=== PATIENT | male | born 1935 | race Caucasian/White ===

== ENCOUNTER 2017-06-02 10:03 | Emergency (ER) | payer MEDICARE, BC ==
--- NOTE | 2017-06-02 10:52 | EDM.PDOC ---
ED HPI GENERAL MEDICAL PROBLEM - General Chief Complaint: General Stated Complaint: BLOOD PRESSURE UP Time Seen by Provider: 06/02/17 10:27 Source of Information: Reports: Patient, Family, Old Records History Limitations: Reports: No Limitations - History of Present Illness INITIAL COMMENTS - FREE TEXT/NARRATIVE: 81-year-old gentleman presents emergency department today via EMS services for dizziness and nausea, recently had [facility] to [place] on 08 May for subjective weakness on one side he does have a history of a CVA several years ago as well as valve replacement is currently on Coumadin, was evaluated in the emergency department at [facility], CT scan showed no acute process diffuse atrophy and his Coumadin was 2.5 per notes patient felt he had no objective weakness on one side. For this particular event he felt dizzy this morning was nauseated generally weak in both legs almost to the point of being presyncopal, did not fall to the ground was able to guide himself to a chair. He is not had any fevers shortness of breath or chest pain, the dizziness now has resolved as well as the nausea denies Pain Score (Numeric/FACES): 0 - Related Data Allergies Allergy/AdvReac Type Severity Reaction Status Date / Time No Known Allergies Allergy Verified 06/02/17 10:09 Home Meds: Home Meds Aspirin 81 mg PO DAILY 06/02/17 [History] Atenolol [Atenolol] 25 mg PO DAILY 06/02/17 [History] Cholecalciferol (Vitamin D3) [Vitamin D3] 1,000 unit PO DAILY 06/02/17 [History] Losartan [Cozaar] 25 mg PO DAILY 06/02/17 [History] Omeprazole 40 mg PO DAILY 06/02/17 [History] Warfarin [Coumadin] 6 mg PO DAILY 06/02/17 [History] atorvaSTATin [Lipitor] 80 mg PO BEDTIME 06/02/17 [History] Past Medical History Cardiovascular History: Reports: Hypertension Neurological History: Reports: CVA, TIA, Vertigo - Past Surgical History Cardiovascular Surgical History: Reports: Valve Replacement Social & Family History - Tobacco Use Smoking Status *Q: Never Smoker Second Hand Smoke Exposure: No - Recreational Drug Use Recreational Drug Use: No ED ROS GENERAL - Review of Systems Review Of Systems: See Below Constitutional: Reports: No Symptoms HEENT: Reports: Vertigo Respiratory: Reports: No Symptoms Cardiovascular: Reports: No Symptoms GI/Abdominal: Reports: No Symptoms : Reports: No Symptoms Musculoskeletal: Reports: No Symptoms Skin: Reports: No Symptoms Neurological: Reports: Dizziness ED EXAM, GENERAL - Physical Exam Exam: See Below Free Text/Narrative:: General: Elderly male, not in any distress, alert and oriented x3 HEENT: head is atraumatic normocephalic, eyes pupils equal round reactive to light, sclera clear no conjunctivitis appreciated. Ears tympanic membranes clear and pittman landmarks and light reflex are present bilaterally canals are clear. Nose no septal deviation, nares are clear, no blood present. Mouth mucosa is moist and pink no erythema or exudate noted in soft palate, tongue is midline uvula is midline, dentition is intact. Neck: Supple no thyromegaly no tracheal deviation. Nodes: Cervical nodes subclavicular nodes nontender no palpable lymphadenopathy noted. Lungs: clear to auscultation bilaterally with symmetrical respirations, no adventitious noise appreciated. CV: Regular rate and rhythm S1 and S2 appreciated 2/6 systolic ejection murmur consistent with mechanical click best appreciated left sternal border Abdomen: Soft, nontender, no palpable masses or organomegaly appreciated, no distention no guarding bowel sounds are present, . Neuro: Cranial nerves II through XII grossly intact wong 5 x 5 in upper and lower extremities no dysdiadochokinesis noted Skin: Warm and dry, intact Extremities: No lower extremity edema appreciated, Gregorio-pike is negative EKG INTERPRETATION EKG Interpretation Comments: EKG performed in the ambulance demonstrates a sinus rhythm no ST elevations or depressions Course - Vital Signs Last Recorded V/S: Last Vital Signs Temp 97.3 F 06/02/17 10:12 Pulse 47 L 06/02/17 11:31 Resp 15 06/02/17 11:31 BP 177/79 H 06/02/17 11:31 Pulse Ox 97 06/02/17 11:31 - Orders/Labs/Meds Labs: Laboratory Tests 06/02/17 06/02/17 06/02/17 Range/Units 10:57 11:03 11:03 WBC 8.3 (4.5-11.0) K/uL RBC 4.57 (4.30-5.90) M/uL Hgb 14.4 (12.0-15.0) g/dL Hct 42.0 (40.0-54.0) % MCV 92 (80-98) fL MCH 32 H (27-31) pg MCHC 34 (32-36) % Plt Count 186 (150-400) K/uL Neut % (Auto) 85 H (36-66) % Lymph % (Auto) 8 L (24-44) % [facility] % (Auto) 7 H (2-6) % Eos % (Auto) 0 L (2-4) % Baso % (Auto) 0 (0-1) % Sodium 138 L (140-148) mmol/L Potassium 4.6 (3.6-5.2) mmol/L Chloride 104 (100-108) mmol/L Carbon Dioxide 29 (21-32) mmol/L Anion Gap 9.6 (5.0-14.0) mmol/L BUN 14 (7-18) mg/dL Creatinine 1.1 (0.8-1.3) mg/dL Est Cr Clr Drug Dosing 54.98 mL/min Estimated GFR (MDRD) > 60 (>60) Glucose 110 H (74-106) mg/dL Calcium 8.4 L (8.5-10.1) mg/dL Urine Color Yellow Urine Appearance Clear Urine pH 8.0 (4.5-8.0) Ur Specific [place] 1.015 (1.008-1.030) Urine Protein Negative (NEGATIVE) mg/dL Urine Glucose (UA) Normal (NEGATIVE) mg/dL Urine Ketones Negative (NEGATIVE) mg/dL Urine Occult Blood Negative (NEGATIVE) Urine Nitrite Negative (NEGAITVE) Urine Bilirubin Negative (NEGATIVE) Urine Urobilinogen Normal (NORMAL) mg/dL Ur Leukocyte Esterase Negative (NEGATIVE) Urine RBC 0-5 (0-5) Urine WBC 0-5 (0-5) Ur Epithelial Cells Rare Amorphous Sediment Not seen Urine Bacteria Rare Urine Mucus Not seen Departure - Departure Time of Disposition: 12:21 Disposition: Home, Self-Care 01 Condition: Fair Clinical Impression: Dizziness - Discharge Information Forms: ED Department Discharge Additional Instructions: Please followup with your primary care provider in 3-5 days if not better, please call return to the emergency department with worsening of symptoms. - Assessment/Plan Plan: Assessment Acuity = acute Site and laterality = dizziness complicated patient with history of cervical vascular accident on Coumadin Etiology = unclear etiology Manifestations = none Location of injury = Home Lab values = CBC, CMP, unremarkable, EKG EMS unremarkable INR pending Plan Physical follow-up with his primary care physician X5 to 7 days for reevaluation and further evaluation of dizziness which may include image studies such as an MRI, consultation physical therapy consultation with neurology Patient was in agreement with the plan all questions were answered, they were instructed to return to the emergency department or call for worsening symptoms. This note was dictated using [employer] voice recognition software please call with any questions.
[2017-06-02 11:32] VITALS: BP 177/79
== END 2017-06-02 12:41 | disposition home or self-care (01) ==
LOC: JP.ED 10:03
DX: R42 Dizziness and giddiness (principal); I10 Essential (primary) hypertension; Z95.4 Presence of other heart-valve replacement; Z79.01 Long term (current) use of anticoagulants; Z79.899 Other long term (current) drug therapy; Z79.82 Long term (current) use of aspirin; Z86.73 Personal history of transient ischemic attack (TIA), and cerebral infarction without residual deficits
CPT/HCPCS: 36415; 80048; 81001; 85025; 85610; 99283; 99284-25

== ENCOUNTER 2017-06-04 09:37 | Inpatient (IN) | payer MEDICARE, BC ==
--- NOTE | 2017-06-04 10:38 | EDM.PDOC ---
ED HPI GENERAL MEDICAL PROBLEM - General Chief Complaint: Neurological Problem Stated Complaint: DIZZINESS/VOMITING/HIGH BP Time Seen by Provider: 06/04/17 10:38 Source of Information: Reports: Patient History Limitations: Reports: No Limitations - History of Present Illness INITIAL COMMENTS - FREE TEXT/NARRATIVE: pt arrived very off balance and a concern about his bp going up and down.he was seen Saturday and he was going to be set up for a MRI. Onset: Gradual Duration: Day(s):, Other (pt has had increased difficulty ambulating . He is very off balance. ) Location: Reports: Head Associated Symptoms: Reports: Weakness, Other (off balance. ) - Related Data Allergies Allergy/AdvReac Type Severity Reaction Status Date / Time No Known Allergies Allergy Verified 06/04/17 09:54 Home Meds: Home Meds Aspirin 81 mg PO DAILY 06/02/17 [History] Atenolol [Atenolol] 25 mg PO DAILY 06/02/17 [History] Cholecalciferol (Vitamin D3) [Vitamin D3] 1,000 unit PO DAILY 06/02/17 [History] Losartan [Cozaar] 25 mg PO DAILY 06/02/17 [History] Omeprazole 40 mg PO DAILY 06/02/17 [History] Warfarin [Coumadin] 6 mg PO DAILY 06/02/17 [History] atorvaSTATin [Lipitor] 80 mg PO BEDTIME 06/02/17 [History] Past Medical History Cardiovascular History: Reports: Hypertension Neurological History: Reports: CVA, TIA, Vertigo - Past Surgical History Cardiovascular Surgical History: Reports: Valve Replacement Social & Family History - Tobacco Use Smoking Status *Q: Never Smoker Second Hand Smoke Exposure: No - Caffeine Use Caffeine Use: Reports: None - Recreational Drug Use Recreational Drug Use: No ED ROS GENERAL - Review of Systems Review Of Systems: See Below Constitutional: Reports: No Symptoms HEENT: Reports: No Symptoms Respiratory: Reports: No Symptoms Cardiovascular: Reports: No Symptoms Endocrine: Reports: No Symptoms GI/Abdominal: Reports: No Symptoms : Reports: No Symptoms Musculoskeletal: Reports: No Symptoms Skin: Reports: No Symptoms Neurological: Reports: Dizziness, Pre-Existing Deficit, Other (pt is very off balance. ) Psychiatric: Reports: Anxiety ED EXAM, NEURO - Physical Exam Exam: See Below Text/Narrative:: pt is having a very labile bp. He had a high pressure at home and on arrival had a bp in the 109 range. Shortly after that he spiked a bp to 202 systolic. Exam Limited By: No Limitations General Appearance: Alert, Anxious Ears: Normal TMs Nose: Normal Inspection Throat/Mouth: Normal Inspection Head Exam: Atraumatic Neck: Normal Inspection, Other ( no evidence of carotid bruits) Respiratory/Chest: No Respiratory Distress Cardiovascular: Regular Rate, Rhythm GI/Abdominal: Soft, Non-Tender, Other (pt had a aortic valve replacement. ) (Male) Exam: Deferred Rectal (Males) Exam: Deferred Neurological: Alert, Oriented x 3, Other (pt can bearly stand and has increased weakness in his legs. ) Back Exam: Normal Inspection Extremities: Normal Inspection, Other (pt has good strength in his upper extremities/ ) Psychiatric: Normal Affect Course - Vital Signs Last Recorded V/S: Last Vital Signs Temp 36.2 C 06/04/17 13:42 Pulse 50 L 06/04/17 13:42 Resp 14 06/04/17 13:42 BP 202/84 H 06/04/17 13:42 Pulse Ox 97 06/04/17 13:42 Orthostatic Blood Pressure [ 176/75 Standing] Orthostatic Blood Pressure [ 174/78 Sitting] Orthostatic Blood Pressure [ 180/77 Supine] - Orders/Labs/Meds Orders: Active Orders 24 hr Category Date Time Status EKG Documentation Completion [RC] ASDIRECTED Care 06/04/17 10:34 Active Sodium Chloride 0.9% [Normal Saline] 1,000 ml Med 06/04/17 10:45 Active IV ASDIRECTED EKG 12 Lead [EK] Routine Ther 06/04/17 10:34 Ordered Medication Orders Sodium Chloride (Normal Saline) 1,000 mls @ 300 mls/hr IV ASDIRECTED PAL Last Admin: 06/04/17 10:50 Dose: 300 mls/hr Labs: Laboratory Tests 06/04/17 06/04/17 06/04/17 Range/Units 10:15 10:15 11:05 WBC 5.8 (4.5-11.0) K/uL RBC 4.54 (4.30-5.90) M/uL Hgb 14.2 (12.0-15.0) g/dL Hct 41.3 (40.0-54.0) % MCV 91 (80-98) fL MCH 31 (27-31) pg MCHC 34 (32-36) % Plt Count 188 (150-400) K/uL Neut % (Auto) 76 H (36-66) % Lymph % (Auto) 13 L (24-44) % [place] % (Auto) 10 H (2-6) % Eos % (Auto) 1 L (2-4) % Baso % (Auto) 0 (0-1) % PT (9.5-12.0) sec INR (0.80-1.20) Sodium 137 L (140-148) mmol/L Potassium 4.1 (3.6-5.2) mmol/L Chloride 102 (100-108) mmol/L Carbon Dioxide 29 (21-32) mmol/L Anion Gap 10.1 (5.0-14.0) mmol/L BUN 15 (7-18) mg/dL Creatinine 1.0 (0.8-1.3) mg/dL Est Cr Clr Drug Dosing 60.48 mL/min Estimated GFR (MDRD) > 60 (>60) Glucose 101 (74-106) mg/dL Calcium 8.4 L (8.5-10.1) mg/dL Total Bilirubin 0.9 (0.2-1.0) mg/dL AST 26 (15-37) U/L ALT 32 (12-78) U/L Alkaline Phosphatase 99 (46-116) U/L Total Protein 7.3 (6.4-8.2) g/dL Albumin 3.5 (3.4-5.0) g/dL Globulin 3.8 H (2.3-3.5) g/dL Albumin/Globulin Ratio 0.9 L (1.2-2.2) Urine Color Yellow Urine Appearance Clear Urine pH 9.0 H (4.5-8.0) Ur Specific [place] 1.015 (1.008-1.030) Urine Protein Negative (NEGATIVE) mg/dL Urine Glucose (UA) Normal (NEGATIVE) mg/dL Urine Ketones Negative (NEGATIVE) mg/dL Urine Occult Blood Negative (NEGATIVE) Urine Nitrite Negative (NEGAITVE) Urine Bilirubin Negative (NEGATIVE) Urine Urobilinogen Normal (NORMAL) mg/dL Ur Leukocyte Esterase Negative (NEGATIVE) Urine RBC Not seen (0-5) Urine WBC Not seen (0-5) Ur Epithelial Cells Few Amorphous Sediment Not seen Urine Bacteria Not seen Urine Mucus Not seen 06/04/17 Range/Units 11:23 WBC (4.5-11.0) K/uL RBC (4.30-5.90) M/uL Hgb (12.0-15.0) g/dL Hct (40.0-54.0) % MCV (80-98) fL MCH (27-31) pg MCHC (32-36) % Plt Count (150-400) K/uL Neut % (Auto) (36-66) % Lymph % (Auto) (24-44) % [place] % (Auto) (2-6) % Eos % (Auto) (2-4) % Baso % (Auto) (0-1) % PT 21.8 H (9.5-12.0) sec INR 1.98 H (0.80-1.20) Sodium (140-148) mmol/L Potassium (3.6-5.2) mmol/L Chloride (100-108) mmol/L Carbon Dioxide (21-32) mmol/L Anion Gap (5.0-14.0) mmol/L BUN (7-18) mg/dL Creatinine (0.8-1.3) mg/dL Est Cr Clr Drug Dosing mL/min Estimated GFR (MDRD) (>60) Glucose (74-106) mg/dL Calcium (8.5-10.1) mg/dL Total Bilirubin (0.2-1.0) mg/dL AST (15-37) U/L ALT (12-78) U/L Alkaline Phosphatase (46-116) U/L Total Protein (6.4-8.2) g/dL Albumin (3.4-5.0) g/dL Globulin (2.3-3.5) g/dL Albumin/Globulin Ratio (1.2-2.2) Urine Color Urine Appearance Urine pH (4.5-8.0) Ur Specific [place] (1.008-1.030) Urine Protein (NEGATIVE) mg/dL Urine Glucose (UA) (NEGATIVE) mg/dL Urine Ketones (NEGATIVE) mg/dL Urine Occult Blood (NEGATIVE) Urine Nitrite (NEGAITVE) Urine Bilirubin (NEGATIVE) Urine Urobilinogen (NORMAL) mg/dL Ur Leukocyte Esterase (NEGATIVE) Urine RBC (0-5) Urine WBC (0-5) Ur Epithelial Cells Amorphous Sediment Urine Bacteria Urine Mucus Meds: Medications Generic Name Dose Route Start Last Admin Trade Name Meredith PRN Reason Stop Dose Admin Sodium Chloride 1,000 mls @ 300 mls/hr 06/04/17 10:45 06/04/17 10:50 Normal Saline IV 300 mls/hr ASDIRECTED PAL Administration - Re-Assessments/Exams Free Text/Narrative Re-Assessment/Exam: 06/04/17 14:04 pt had an MRI which did not reveal any acute findings. His bp continued to be very labile. Departure - Departure Time of Disposition: 14:05 Disposition: Admitted As Inpatient 67 Condition: Fair Clinical Impression: Blood pressure instability, History of stroke - Discharge Information Forms: ED Department Discharge Care Plan Goals: admit to Dr villatoro. - My Orders Last 24 Hours: My Active Orders 06/04/17 10:34 EKG Documentation Completion [RC] ASDIRECTED EKG 12 Lead [EK] Routine 06/04/17 10:45 Sodium Chloride 0.9% [Normal Saline] 1,000 ml IV ASDIRECTED - Assessment/Plan Last 24 Hours: My Active Orders 06/04/17 10:34 EKG Documentation Completion [RC] ASDIRECTED EKG 12 Lead [EK] Routine 06/04/17 10:45 Sodium Chloride 0.9% [Normal Saline] 1,000 ml IV ASDIRECTED
[2017-06-04] MEDS ORDERED: Sodium Chloride 0.9% 1,000 ML IV SCH (10:45)
--- NOTE | 2017-06-04 13:10 | MR ---
Brain wo Cont INDICATION: off balance previous history of a cva. Technique: Multiplanar MR images of the brain obtained without IV contrast. COMPARISON: None FINDINGS: No acute ischemic change. Old right occipital lobe infarct. Small old right cerebellar inf arct. Extensive chronic small vessel ischemic disease. No diffusion restriction to suggest acute isc hemic change. Innumerable tiny low signal foci on gradient echo sequence throughout both cerebral an d cerebellar hemispheres. Findings nonspecific and may be due to old trauma. No signs of acute hemor rhage. Ventricles normal size. IMPRESSION: 1. Nothing acute. 2. Old right occipital lobe infarct, small old right cerebellar infarct, and extensive chronic small vessel ischemic disease.
--- NOTE | 2017-06-04 14:52 | PCM.HP ---
H&P History of Present Illness - General Date of Service: 06/04/17 Admit Problem/Dx: Admission Diagnosis/Problem Admission Diagnosis/Problem Hypertension Source of Information: Patient, Family, Provider History Limitations: Reports: No Limitations - History of Present Illness Initial Comments - Free Text/Narative: Alex presents to the emergency room today with severe dizziness and unsteadiness. He has had similar difficulties over the past month or so with some days being worse than others. He has had multiple falls because of his gait unsteadiness. He notices orthostatic symptoms including dizziness/ lightheadedness after getting up out of bed or out of a chair. He needs to use objects or a walker to steady himself. He does not describe any sort of vertigo symptoms. He has not had any fevers. He does not report headache, blurry vision , chest pain or shortness of breath. No change in bowel or bladder habits. No new medications. Symptoms seem to be slowly progressing. His has been checking his blood pressure for the past few days and has noted significant elevations but also some that are normal or low normal. His blood pressure range has been anywhere from 100-200 with regard to his systolic pressures. His pressures were elevated today when he had his dizziness so he came in for evaluation. Workup in the emergency room has been relatively reassuring other than his systolic blood pressures near 200. An MRI of his brain was completed and showed chronic small vessel disease and an old infarct but no acute findings. His blood pressure has ranged anywhere from 100-200. Because of his significant gait instability he is not thought to be safe for outpatient management. - Related Data Allergies/Adverse Reactions: Allergies Allergy/AdvReac Type Severity Reaction Status Date / Time No Known Allergies Allergy Verified 06/04/17 09:54 Home Medications: Home Meds Aspirin 81 mg PO DAILY 06/02/17 [History] Atenolol [Atenolol] 25 mg PO DAILY 06/02/17 [History] Cholecalciferol (Vitamin D3) [Vitamin D3] 1,000 unit PO DAILY 06/02/17 [History] Losartan [Cozaar] 25 mg PO DAILY 06/02/17 [History] Omeprazole 40 mg PO BID 06/02/17 [History] Warfarin [Coumadin] 6 mg PO DAILY 06/02/17 [History] atorvaSTATin [Lipitor] 80 mg PO BEDTIME 06/02/17 [History] Lutein 40 mg PO DAILY 06/04/17 [History] Past Medical History Cardiovascular History: Reports: Hypertension Neurological History: Reports: CVA, TIA, Vertigo - Past Surgical History Cardiovascular Surgical History: Reports: Valve Replacement Social & Family History - Family History Cardiac: Reports: CAD - Tobacco Use Smoking Status *Q: Never Smoker Second Hand Smoke Exposure: No - Caffeine Use Caffeine Use: Reports: None - Alcohol Use Alcohol Use History: No - Recreational Drug Use Recreational Drug Use: No H&P Review of Systems - Review of Systems: Review Of Systems: See Below Free Text/Narrative: A complete 12 point review of systems was obtained. Pertinent positives and negatives are noted in the history of present illness. All other systems were reviewed and were negative except as noted. Exam - Exam Exam: See Below - Vital Signs Vital Signs: Last Vital Signs Temp 36.2 C 06/04/17 13:42 Pulse 50 L 06/04/17 13:42 Resp 14 06/04/17 13:42 BP 202/84 H 06/04/17 13:42 Pulse Ox 97 06/04/17 13:42 Orthostatic Blood Pressure [ 176/75 Standing] Orthostatic Blood Pressure [ 174/78 Sitting] Orthostatic Blood Pressure [ 180/77 Supine] Weight: 72.575 kg - Exam Quality Assessment: No: Supplemental Oxygen General: Alert, Oriented, Cooperative. No: Mild Distress HEENT: Conjunctiva Clear, Mucosa Moist & [place], Pupils Equal. No: Scleral Icterus Neck: Supple, Trachea Midline. No: Lymphadenopathy, Thyromegaly Lungs: Clear to Auscultation, Normal Respiratory Effort Cardiovascular: Regular Rate, Regular Rhythm, Systolic Murmur (Soft systolic ejection murmur heard throughout), Other ([place] heart valve sounds) GI/Abdominal Exam: Normal Bowel Sounds, Soft, Non-Tender, No Distention Back Exam: Normal Inspection, Full Range of Motion Extremities: Normal Inspection. No: Pedal Edema, Increased Warmth Peripheral Pulses: 1+: Dorsalis Pedis (L), Dorsalis Pedis (R) Skin: Warm, Dry, Intact Neuro Extensive - Mental Status: Alert, Oriented x3, Nl Response to Commands Neuro Extensive - Motor, Sensory, Reflexes: CN II-XII Intact. No: Dysarthria, Abnormal Motor, Tremor DTR: 1+: Bicep (L), Bicep (R), Patella (L), Patella (R) Psychiatric: Alert, Normal Affect - Patient Data Lab Results Last 24 hrs: Laboratory Results - last 24 hr 06/04/17 06/04/17 06/04/17 Range/Units 10:15 10:15 11:05 WBC 5.8 (4.5-11.0) K/uL RBC 4.54 (4.30-5.90) M/uL Hgb 14.2 (12.0-15.0) g/dL Hct 41.3 (40.0-54.0) % MCV 91 (80-98) fL MCH 31 (27-31) pg MCHC 34 (32-36) % Plt Count 188 (150-400) K/uL Neut % (Auto) 76 H (36-66) % Lymph % (Auto) 13 L (24-44) % [place] % (Auto) 10 H (2-6) % Eos % (Auto) 1 L (2-4) % Baso % (Auto) 0 (0-1) % PT (9.5-12.0) sec INR (0.80-1.20) Sodium 137 L (140-148) mmol/L Potassium 4.1 (3.6-5.2) mmol/L Chloride 102 (100-108) mmol/L Carbon Dioxide 29 (21-32) mmol/L Anion Gap 10.1 (5.0-14.0) mmol/L BUN 15 (7-18) mg/dL Creatinine 1.0 (0.8-1.3) mg/dL Est Cr Clr Drug Dosing 60.48 mL/min Estimated GFR (MDRD) > 60 (>60) Glucose 101 (74-106) mg/dL Calcium 8.4 L (8.5-10.1) mg/dL Total Bilirubin 0.9 (0.2-1.0) mg/dL AST 26 (15-37) U/L ALT 32 (12-78) U/L Alkaline Phosphatase 99 (46-116) U/L Total Protein 7.3 (6.4-8.2) g/dL Albumin 3.5 (3.4-5.0) g/dL Globulin 3.8 H (2.3-3.5) g/dL Albumin/Globulin Ratio 0.9 L (1.2-2.2) Urine Color Yellow Urine Appearance Clear Urine pH 9.0 H (4.5-8.0) Ur Specific [place] 1.015 (1.008-1.030) Urine Protein Negative (NEGATIVE) mg/dL Urine Glucose (UA) Normal (NEGATIVE) mg/dL Urine Ketones Negative (NEGATIVE) mg/dL Urine Occult Blood Negative (NEGATIVE) Urine Nitrite Negative (NEGAITVE) Urine Bilirubin Negative (NEGATIVE) Urine Urobilinogen Normal (NORMAL) mg/dL Ur Leukocyte Esterase Negative (NEGATIVE) Urine RBC Not seen (0-5) Urine WBC Not seen (0-5) Ur Epithelial Cells Few Amorphous Sediment Not seen Urine Bacteria Not seen Urine Mucus Not seen 06/04/17 Range/Units 11:23 WBC (4.5-11.0) K/uL RBC (4.30-5.90) M/uL Hgb (12.0-15.0) g/dL Hct (40.0-54.0) % MCV (80-98) fL MCH (27-31) pg MCHC (32-36) % Plt Count (150-400) K/uL Neut % (Auto) (36-66) % Lymph % (Auto) (24-44) % [place] % (Auto) (2-6) % Eos % (Auto) (2-4) % Baso % (Auto) (0-1) % PT 21.8 H (9.5-12.0) sec INR 1.98 H (0.80-1.20) Sodium (140-148) mmol/L Potassium (3.6-5.2) mmol/L Chloride (100-108) mmol/L Carbon Dioxide (21-32) mmol/L Anion Gap (5.0-14.0) mmol/L BUN (7-18) mg/dL Creatinine (0.8-1.3) mg/dL Est Cr Clr Drug Dosing mL/min Estimated GFR (MDRD) (>60) Glucose (74-106) mg/dL Calcium (8.5-10.1) mg/dL Total Bilirubin (0.2-1.0) mg/dL AST (15-37) U/L ALT (12-78) U/L Alkaline Phosphatase (46-116) U/L Total Protein (6.4-8.2) g/dL Albumin (3.4-5.0) g/dL Globulin (2.3-3.5) g/dL Albumin/Globulin Ratio (1.2-2.2) Urine Color Urine Appearance Urine pH (4.5-8.0) Ur Specific [place] (1.008-1.030) Urine Protein (NEGATIVE) mg/dL Urine Glucose (UA) (NEGATIVE) mg/dL Urine Ketones (NEGATIVE) mg/dL Urine Occult Blood (NEGATIVE) Urine Nitrite (NEGAITVE) Urine Bilirubin (NEGATIVE) Urine Urobilinogen (NORMAL) mg/dL Ur Leukocyte Esterase (NEGATIVE) Urine RBC (0-5) Urine WBC (0-5) Ur Epithelial Cells Amorphous Sediment Urine Bacteria Urine Mucus Result Diagrams: 06/04/17 10:15 06/04/17 10:15 Imaging Impressions Last 24 hrs: MRI of the brain - images personally reviewed - there is evidence of a 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 Chronic small vessel ischemic disease noted. *Q Meaningful Use (ADM) - VTE *Q VTE Criteria *Q: - VTE Risk Assess *Q Each Risk Factor Represents 1 Point: None Total Score 1 Point Risk Factors: 0 Each Risk Factor Represents 2 Points: None Total Score 2 Point Risk Factors: 0 Each Risk Factor Represents 3 Points: Age 75 Years or Greater Total Score 3 Point Risk Factors: 3 Each Risk Factor Represents 5 Points: None Total Score 5 Point Risk Factors: 0 Venous Thromboembolism Risk Factor Score *Q: 3 - Stroke *Q Stroke Criteria *Q: - AMI *Q AMI Criteria *Q: - Problem List (1) Accelerated hypertension SNOMED Code(s): 82773244 ICD Code: I10 - ESSENTIAL (PRIMARY) HYPERTENSION Status: Acute Current Visit: Yes (2) Dizziness SNOMED Code(s): 060219824, 917793707 ICD Code: R42 - DIZZINESS AND GIDDINESS Status: Acute Current Visit: No Problem List Initiated/Reviewed/Updated: Yes Orders Last 24hrs: Active Orders 24 hr Category Date Time Status Patient Status Manage Transfer [TRANSFER] Routine ADT 06/04/17 14:42 Ordered EKG Documentation Completion [RC] ASDIRECTED Care 06/04/17 10:34 Active Sodium Chloride 0.9% [Normal Saline] 1,000 ml Med 06/04/17 10:45 Active IV ASDIRECTED Resuscitation Status Routine Resus Stat 06/04/17 14:43 Ordered EKG 12 Lead [EK] Routine Ther 06/04/17 10:34 Ordered Medication Orders Sodium Chloride (Normal Saline) 1,000 mls @ 300 mls/hr IV ASDIRECTED PAL Last Admin: 06/04/17 10:50 Dose: 300 mls/hr Assessment/Plan Comment:: Assessment and Plan - Accelerated hypertension - blood pressure has been labile with more recent blood pressures significantly elevated. This may be simply poorly controlled essential hypertension though I am concerned that he may have an underlying vascular issues such as cerebral stenosis or possibly but less likely a cardiac issue. MRI did not show acute issues. Examination is relatively benign at this time. Labs are reassuring. - continue losartan -MRA of his brain in the morning to rule out obstructing lesion -Echocardiogram -Hold atenolol as below -Repeat labs in the morning Dizziness - neurological exam is unremarkable. MRI shows old findings but no acute issues. Differential would include occult cerebral occlusion versus occult cardiac issue versus potentially medication side effect to atenolol. -Workup as above -Discontinue atenolol Maintenance issues - - DVT prophylaxis - mechanical - GI prophylaxis - PPI - Nutrition - regular diet - Powell catheter - not indicated CODE STATUS - DNR/DNI Admission justification - This patient will be admitted for inpatient services and is medically appropriate meeting medical necessity for inpatient admission as outlined in my documentation. I reasonably expect the patient will require inpatient services that span a period time over 2 midnights. I reasonably expect this patient to be discharged or transferred within 96 hours [facility] Disposition - anticipate discharged home after the hospital stay Primary care physician - Dr Amos Aguirre M.D.
[2017-06-04] MEDS ORDERED: Acetaminophen 325 MG Tab PO PRN (15:42)
[2017-06-04] MEDS ORDERED: Ondansetron 4 MG Tab.DIS PO PRN (15:42)
[2017-06-04] MEDS ORDERED: Non-Formulary Medication 1 Each (Atorvastatin [Lipitor] 80 MG) PO SCH (21:00)
[2017-06-04] MEDS: atorvaSTATin 20 MG Tab PO SCH (22:24)
[2017-06-05] MEDS: Pantoprazole 40 MG Tab.CR PO SCH (08:55)
[2017-06-05] MEDS ORDERED: Non-Formulary Medication 1 Each (Losartan [Cozaar] 25 MG) PO SCH (09:00)
[2017-06-05] MEDS: Aspirin 81 MG Tab.Chew PO SCH (09:20)
[2017-06-05] MEDS: Losartan 50 MG Tab PO SCH (09:20)
--- NOTE | 2017-06-05 11:26 | MR ---
Ang Head wo Cont INDICATION: TIA TECHNIQUE: MRA brain performed. COMPARISON: None FINDINGS: Multiple stenoses in the right posterior cerebral artery, which correlates with old pool servicer ior circulation infarct. Cerebellar arteries are patent. Remainder of the study shows no significant atheromatous change or stenosis. No major vessel occlusion. Neither posterior communicating artery patent, normal variant. No aneurysm seen. No vascular malformation. IMPRESSION: Multiple stenoses in the right posterior cerebral artery correlating with old right post erior circulation infarct. Otherwise no major vessel occlusion or stenosis.
--- NOTE | 2017-06-05 12:17 | PCM.PN ---
- General Info Date of Service: 06/05/17 Functional Status: Reports: Pain Controlled, Tolerating Diet, Ambulating - Review of Systems Neurological: Reports: Difficulty Walking Systems Review Comment:: No acute events overnight. Still has some dizziness and unsteadiness with his walking. No complaints of headache, shortness of breath or chest pain. Blood pressures have been stable overnight with some hydration. No significant elevations at this time. MRA did not show acute blockages but did reveal some old stenosis in the area of his previous infarct. Informal echocardiogram interpretation reveals good left ventricular function, mild perivalvular regurgitation and no evidence for pericardial effusion. - Patient Data Vitals - Most Recent: Last Vital Signs Temp 36.4 C 06/05/17 10:53 Pulse 54 L 06/05/17 10:53 Resp 16 06/05/17 10:53 BP 158/75 H 06/05/17 10:53 Pulse Ox 98 06/05/17 10:53 Weight - Most Recent: 72.575 kg I&O - Last 24 Hours: Intake & Output 06/04/17 06/05/17 06/05/17 22:59 06:59 14:59 Intake Total 300 240 Balance 300 240 Lab Results Last 24 Hours: Laboratory Results - last 24 hr 06/05/17 06/05/17 06/05/17 Range/Units 05:50 05:50 05:50 WBC 6.7 (4.5-11.0) K/uL RBC 4.44 (4.30-5.90) M/uL Hgb 13.7 (12.0-15.0) g/dL Hct 40.4 (40.0-54.0) % MCV 91 (80-98) fL MCH 31 (27-31) pg MCHC 34 (32-36) % Plt Count 182 (150-400) K/uL PT 23.2 H (9.5-12.0) sec INR 2.10 H (0.80-1.20) Sodium 137 L (140-148) mmol/L Potassium 4.2 (3.6-5.2) mmol/L Chloride 104 (100-108) mmol/L Carbon Dioxide 28 (21-32) mmol/L Anion Gap 9.2 (5.0-14.0) mmol/L BUN 16 (7-18) mg/dL Creatinine 1.0 (0.8-1.3) mg/dL Est Cr Clr Drug Dosing 60.48 mL/min Estimated GFR (MDRD) > 60 (>60) Glucose 95 (74-106) mg/dL Calcium 8.3 L (8.5-10.1) mg/dL Magnesium 1.9 (1.8-2.4) mg/dL Med Orders - Current: Current Medications Acetaminophen (Tylenol) 650 mg PO Q4H PRN PRN Reason: Pain (Mild 1-3)/fever Aspirin (Aspirin) 81 mg PO DAILY [facility] Last Admin: 06/05/17 09:20 Dose: 81 mg Atorvastatin Calcium (Lipitor) 80 mg PO BEDTIME [facility] Last Admin: 06/04/17 22:24 Dose: 80 mg Losartan Potassium (Cozaar) 25 mg PO DAILY [facility] Last Admin: 06/05/17 09:20 Dose: 25 mg Ondansetron HCl (Zofran Odt) 4 mg PO Q6H PRN PRN Reason: Nausea able to take PO Pantoprazole Sodium (Protonix) 40 mg PO ACBREAKFAST [facility] Last Admin: 06/05/17 08:55 Dose: 40 mg Warfarin Sodium (Coumadin) 6 mg PO DAILY@1300 [facility] Discontinued Medications Sodium Chloride (Normal Saline) 1,000 mls @ 300 mls/hr IV ASDIRECTED [facility] Last Admin: 06/04/17 10:50 Dose: 300 mls/hr - Exam Quality Assessment: No: Supplemental Oxygen General: Alert, Oriented, Cooperative, No Acute Distress Neck: Supple Lungs: Normal Respiratory Effort Cardiovascular: Regular Rate, Regular Rhythm GI/Abdominal Exam: Soft, No Distention Extremities: No Pedal Edema Skin: Warm, Dry Psy/Mental Status: Alert, Normal Affect - Problem List & Annotations (1) Accelerated hypertension SNOMED Code(s): 03715938 Code(s): I10 - ESSENTIAL (PRIMARY) HYPERTENSION Status: Acute Current Visit: Yes (2) Dizziness SNOMED Code(s): 891382329, 533615793 Code(s): R42 - DIZZINESS AND GIDDINESS Status: Acute Current Visit: No - Problem List Review Problem List Initiated/Reviewed/Updated: Yes - My Orders Last 24 Hours: My Active Orders 06/04/17 14:43 Resuscitation Status Routine 06/04/17 15:42 Patient Status [ADT] Routine Bedrest Bedside Commode [RC] ASDIRECTED Notify Provider Vital Signs [RC] ASDIRECTED Oxygen Therapy [RC] PRN Up With Assistance [RC] ASDIRECTED VTE/DVT Education [RC] Per Unit Routine Vital Signs [RC] Q4H Acetaminophen [Tylenol] 650 mg PO Q4H PRN Ondansetron [Zofran ODT] 4 mg PO Q6H PRN Sequential Compression Device [OM.PC] Per Unit Routine 06/04/17 21:00 atorvaSTATin [Lipitor] 80 mg PO BEDTIME 06/04/17 Dinner Regular Diet [DIET] 06/05/17 07:00 Echo Comp wo Cont [US] Routine 06/05/17 07:30 Pantoprazole [ProTONIX] 40 mg PO ACBREAKFAST 06/05/17 09:00 Losartan [Cozaar] 25 mg PO DAILY 06/05/17 12:15 Discontinue Telemetry Monitoring [Cardiac Monitoring Discontinue] [RC] Click to Edit PT Evaluation and Treatment [CONS] Routine 06/05/17 13:00 Warfarin [Coumadin] 6 mg PO DAILY@1300 06/06/17 05:00 INR,PT,PROTHROMBIN TIME [COAG] Timed - Plan Plan:: Assessment and Plan - Accelerated hypertension - blood pressure labile prior to admission but stable since admission. MRA and echocardiogram were unremarkable as far as acute issues. - continue losartan -Hold atenolol as below -Repeat labs in the morning Dizziness - neurological exam is unremarkable. MRI, MRA and echocardiogram did not reveal acute issues. Suspect medication side effect related to atenolol. If this is the case he should be improving as we get through the day today and into tomorrow. -Workup as above -Discontinue atenolol Maintenance issues - - DVT prophylaxis - mechanical - GI prophylaxis - PPI - Nutrition - regular diet Disposition - anticipate discharged home after the hospital stay, hopefully tomorrow Kenneth Aguirre M.D.
[2017-06-05] MEDS ORDERED: Non-Formulary Medication 1 Each (Warfarin [Coumadin] 6 MG) PO SCH (13:00)
[2017-06-05] MEDS ORDERED: Warfarin 3 MG Tab PO SCH (13:00)
[2017-06-05] MEDS: atorvaSTATin 20 MG Tab PO SCH (20:50)
[2017-06-06] MEDS: Pantoprazole 40 MG Tab.CR PO SCH (07:46)
[2017-06-06] MEDS: Aspirin 81 MG Tab.Chew PO SCH (08:02)
[2017-06-06] MEDS: Losartan 50 MG Tab PO SCH (08:02)
--- NOTE | 2017-06-06 12:01 | PCM.DCSUM1 ---
Discharge Summary - Hospital Course Brief History: 81-year-old male with history of essential hypertension and aortic valve replacement who presented with dizziness and gait instability as well as labile hypertension. He was admitted for further workup and management. - Discharge Data Discharge Date: 06/06/17 Discharge Disposition: Home, W Home Health Agency 06 Condition: Fair - Discharge Diagnosis/Problem(s) (1) Accelerated hypertension SNOMED Code(s): 73336691 ICD Code: I10 - ESSENTIAL (PRIMARY) HYPERTENSION Status: Acute Current Visit: Yes (2) Dizziness SNOMED Code(s): 070776824, 880071159 ICD Code: R42 - DIZZINESS AND GIDDINESS Status: Acute Current Visit: No - Patient Summary/Data Consults: Consultations 06/05/17 12:15 PT Evaluation and Treatment [CONS] Routine Please Evaluate and Treat. PT Reason for Consult: Ambulation This query below is only for informational purposes and is not editable. Admission Diagnosis/Problem: Hypertension Hospital Course: Alex presented to the emergency room with several weeks of progressive dizziness and gait instability. He had recent difficulties with labile hypertension at home. Workup in the emergency room including laboratory studies and a brain MRI was unrevealing. He was noted to have labile hypertension with pressures ranging from 110-200 during his short visit there. He was admitted to the hospital for further workup but adverse reaction to atenolol was suspected at the time of admission. His atenolol was discontinued but we did elect to continue his losartan. His blood pressures normalized with gentle IV fluids administered overnight. His blood pressures remained stable just with the losartan. The morning after admission he feels slightly better. We performed an MRA of the brain which did not reveal any significant stenoses. An echocardiogram was performed and this showed normal left ventricular function, well seated and normally functioning prosthetic aortic valve and moderate tricuspid regurgitation. No wall motion abnormalities or pulmonary hypertension. By the second morning after admission he was feeling much better. His gait has been much steadier and his dizziness has essentially resolved at this point. His heart rate has been around 60 and his blood pressures have been in the 130-140 range. I have elected to avoid initiating a new medication at this point since his vital signs are stable. He may benefit from a low-dose beta mayur but clinically looks well at this time. He has follow-up next week with the network administrator and will be following up in 2 weeks for blood pressure check with his primary care. - Patient Instructions Diet: Regular Diet as Tolerated Activity: As Tolerated Showering/Bathing: May Shower Notify Provider of: Fever, Increased Pain, Nausea and/or Vomiting Other/Special Instructions: 1. You were in the hospital for management of accelerated hypertension and dizziness. Your blood pressure has improved and your dizziness seems to have improved after stopping your atenolol. I believe you had an adverse reaction to this medication and would recommend that you do not take this medication ever again. At this time your blood pressure and heart rate have been acceptable and I do not believe you need an additional medication. If your blood pressure rises or your heart rate rises to greater than 80 we may consider starting a low dose of metoprolol. 2. Please follow-up as scheduled with your network administrator. 3. Follow-up with Dr. Trinidad in a proximally 2 weeks for a blood pressure check. 4. Please seek medical attention if you develop fever greater than 101, have sudden onset of shortness of breath or chest pain or if your dizziness returns and is severe. - Discharge Plan Home Medications: Home Meds Aspirin 81 mg PO DAILY 06/02/17 [History] Cholecalciferol (Vitamin D3) [Vitamin D3] 1,000 unit PO DAILY 06/02/17 [History] Losartan [Cozaar] 25 mg PO DAILY 06/02/17 [History] Omeprazole 40 mg PO BID 06/02/17 [History] Warfarin [Coumadin] 6 mg PO DAILY 06/02/17 [History] atorvaSTATin [Lipitor] 80 mg PO BEDTIME 06/02/17 [History] Lutein 40 mg PO DAILY 06/04/17 [History] Patient Handouts: Hypertension Referrals: Pedro Trinidad MD [Primary Care Provider] - (f/u in two weeks for a BP check ) - Patient Data Vitals - Most Recent: Last Vital Signs Temp 36.4 C 06/06/17 07:57 Pulse 73 06/06/17 07:57 Resp 16 06/06/17 07:57 BP 143/93 H 06/06/17 08:02 Pulse Ox 96 06/06/17 07:57 Weight - Most Recent: 67.585 kg I&O - Last 24 hours: Intake & Output 06/05/17 06/06/17 06/06/17 22:59 06:59 14:59 Intake Total 240 450 660 Balance 240 450 660 Lab Results - Last 24 hrs: Laboratory Results - last 24 hr 06/06/17 Range/Units 05:00 PT 28.4 H (9.5-12.0) sec INR 2.55 H (0.80-1.20) Med Orders - Current: Current Medications Acetaminophen (Tylenol) 650 mg PO Q4H PRN PRN Reason: Pain (Mild 1-3)/fever Aspirin (Aspirin) 81 mg PO DAILY [facility] Last Admin: 06/06/17 08:02 Dose: 81 mg Atorvastatin Calcium (Lipitor) 80 mg PO BEDTIME [facility] Last Admin: 06/05/17 20:50 Dose: 80 mg Losartan Potassium (Cozaar) 25 mg PO DAILY [facility] Last Admin: 06/06/17 08:02 Dose: 25 mg Ondansetron HCl (Zofran Odt) 4 mg PO Q6H PRN PRN Reason: Nausea able to take PO Pantoprazole Sodium (Protonix) 40 mg PO ACBREAKFAST [facility] Last Admin: 06/06/17 07:46 Dose: 40 mg Warfarin Sodium (Coumadin) 6 mg PO DAILY@1300 [facility] Last Admin: 06/05/17 12:17 Dose: 6 mg Discontinued Medications Sodium Chloride (Normal Saline) 1,000 mls @ 300 mls/hr IV ASDIRECTED [facility] Last Admin: 06/04/17 10:50 Dose: 300 mls/hr *Q Meaningful Use (DIS) - VTE *Q VTE Criteria *Q: - Stroke *Q Stroke Criteria *Q: - AMI *Q AMI Criteria *Q:
[2017-06-06 12:10] VITALS: BP 150/81
== END 2017-06-06 14:00 | disposition home health service (06) | DRG 305 ==
LOC: JP.ED 09:37 → JP.MS 14:42
PROVIDERS: ADMIT Internal Medicine; ATTEND Internal Medicine
DX: I10 Essential (primary) hypertension (principal); Z95.2 Presence of prosthetic heart valve; R42 Dizziness and giddiness; I08.2 Rheumatic disorders of both aortic and tricuspid valves; Z79.01 Long term (current) use of anticoagulants; Z86.73 Personal history of transient ischemic attack (TIA), and cerebral infarction without residual deficits
CPT/HCPCS: 36415; 70544; 70544-26; 70551; 70551-26; 80048; 80053; 81001; 83735; 85025; 85027; 85610; 93005; 93010; 93306; 96360; 96361; 97162-GP; 99285; 99285-25; A9270-GY; J7040

== ENCOUNTER 2019-04-20 20:29 | Emergency (ER) | payer MEDICARE, BC ==
[2019-04-20 20:46] VITALS: BP 141/78
--- NOTE | 2019-04-20 21:08 | EDM.PDOC ---
ED HPI GENERAL MEDICAL PROBLEM - General Chief Complaint: General Stated Complaint: FELL Time Seen by Provider: 04/20/19 20:54 Source of Information: Reports: Patient, EMS, Family History Limitations: Reports: Other (he has advanced dementia) - History of Present Illness INITIAL COMMENTS - FREE TEXT/NARRATIVE: family states that this evening he was standing to brush his teeth when he fell down; he states he is dizzy; but not any more than usual; he feels his legs don't do what he tells them to do. per family, he has had approximately 5 falls in the last 5 days; seems to be getting worse. His only complaint is low back pain however he is able to ambulate. Onset: Today Location: Reports: Back Quality: Reports: Ache Severity: Mild Improves with: Reports: None Worsens with: Reports: None Associated Symptoms: Reports: Weakness Treatments [employer]IST: Reports: Other (see below) Other Treatments SENIOR [employer] SPECIALIST: none - Related Data Allergies Allergy/AdvReac Type Severity Reaction Status Date / Time No Known Allergies Allergy Verified 04/20/19 20:36 Home Meds: Home Meds Aspirin 81 mg PO DAILY 06/02/17 [History] Cholecalciferol (Vitamin D3) [Vitamin D3] 1,000 unit PO DAILY 06/02/17 [History] Losartan [Cozaar] 25 mg PO DAILY 06/02/17 [History] Omeprazole 40 mg PO BID 06/02/17 [History] Warfarin [Coumadin] 6 mg PO DAILY 06/02/17 [History] Lutein 40 mg PO DAILY 06/04/17 [History] Amoxicillin 500 mg PO ASDIRECTED 04/20/19 [History] Venlafaxine HCl [Venlafaxine ER] 37.5 mg PO DAILY 04/20/19 [History] Past Medical History HEENT History: Reports: Hard of Hearing, Impaired Vision Cardiovascular History: Reports: Hypertension Gastrointestinal History: Reports: GERD Musculoskeletal History: Reports: Arthritis Neurological History: Reports: CVA, TIA, Vertigo Psychiatric History: Reports: Dementia Other Psychiatric History: early stages - Infectious Disease History Infectious Disease History: Reports: Chicken Pox - Past Surgical History Head Surgeries/Procedures: Reports: None Cardiovascular Surgical History: Reports: Valve Replacement Musculoskeletal Surgical History: Reports: Knee Replacement Other Musculoskeletal Surgeries/Procedures:: right knee Social & Family History - Family History Family Medical History: Unobtainable Cardiac: Reports: CAD - Tobacco Use Smoking Status *Q: Unknown Ever Smoked Second Hand Smoke Exposure: No - Caffeine Use Caffeine Use: Reports: Coffee - Recreational Drug Use Recreational Drug Use: No ED ROS GENERAL - Review of Systems Review Of Systems: See Below Constitutional: Reports: Weakness HEENT: Reports: No Symptoms Respiratory: Reports: No Symptoms Cardiovascular: Reports: No Symptoms Endocrine: Reports: No Symptoms GI/Abdominal: Reports: No Symptoms : Reports: No Symptoms Musculoskeletal: Reports: No Symptoms Skin: Reports: No Symptoms Neurological: Reports: Confusion, Weakness Psychiatric: Reports: No Symptoms ED EXAM, GENERAL - Physical Exam Exam: See Below Exam Limited By: No Limitations General Appearance: Alert, WD/WN, No Apparent Distress Eye Exam: Bilateral Eye: EOMI, PERRL Nose: Normal Inspection Throat/Mouth: Normal Inspection Head: Atraumatic, Normocephalic Neck: Normal Inspection, Supple, Non-Tender, Full Range of Motion Respiratory/Chest: No Respiratory Distress, Lungs Clear, Normal Breath Sounds Cardiovascular: Regular Rate, Rhythm GI/Abdominal: Normal Bowel Sounds, Soft, Non-Tender Back Exam: Normal Inspection, Full Range of Motion, Other (slight low back tenderness) Neurological: Alert, Oriented, CN II-XII Intact, Normal Cognition, Normal Gait Psychiatric: Normal Affect, Normal Mood Skin Exam: Warm, Dry, Intact Course - Vital Signs Last Recorded V/S: Last Vital Signs Temp 98.6 F 04/20/19 20:44 Pulse 83 04/20/19 20:44 Resp 14 04/20/19 20:44 BP 141/78 H 04/20/19 20:44 Pulse Ox 96 04/20/19 20:44 - Orders/Labs/Meds Labs: Laboratory Tests 04/20/19 04/20/19 Range/Units 21:21 21:21 WBC 7.1 (4.5-11.0) K/uL RBC 4.21 L (4.30-5.90) M/uL Hgb 12.8 (12.0-15.0) g/dL Hct 39.1 L (40.0-54.0) % MCV 93 (80-98) fL MCH 30 (27-31) pg MCHC 33 (32-36) % Plt Count 237 (150-400) K/uL Neut % (Auto) 72 H (36-66) % Lymph % (Auto) 15 L (24-44) % Haines % (Auto) 11 H (2-6) % Eos % (Auto) 2 (2-4) % Baso % (Auto) 0 (0-1) % Sodium 136 L (140-148) mmol/L Potassium 4.4 (3.6-5.2) mmol/L Chloride 101 (100-108) mmol/L Carbon Dioxide 28 (21-32) mmol/L Anion Gap 11.4 (5.0-14.0) mmol/L BUN 23 H (7-18) mg/dL Creatinine 1.2 (0.8-1.3) mg/dL Est Cr Clr Drug Dosing 41.41 mL/min Estimated GFR (MDRD) 58 L (>60) Glucose 114 H (74-106) mg/dL Calcium 8.5 (8.5-10.1) mg/dL Total Bilirubin 0.4 D (0.2-1.0) mg/dL AST 33 (15-37) U/L ALT 37 (12-78) U/L Alkaline Phosphatase 168 H (46-116) U/L Total Protein 6.9 (6.4-8.2) g/dL Albumin 2.9 L (3.4-5.0) g/dL Globulin 4.0 H (2.3-3.5) g/dL Albumin/Globulin Ratio 0.7 L (1.2-2.2) - Re-Assessments/Exams Free Text/Narrative Re-Assessment/Exam: 04/20/19 22:25 CT of brain shows no acute process; Discussed CT and lab findings with patient, and son; Recommend DC to home and FU with Dr. Trinidad. Departure - Departure Time of Disposition: 22:25 Disposition: Home, Self-Care 01 Condition: Fair Clinical Impression: Weakness - Discharge Information *PRESCRIPTION DRUG MONITORING PROGRAM REVIEWED*: Not Applicable *COPY OF PRESCRIPTION DRUG MONITORING REPORT IN PATIENT FAIZA: Not Applicable Instructions: Weakness, [id number] Referrals: Pedro Trinidad MD [Primary Care Provider] - Forms: ED Department Discharge - Problem List & Annotations (1) Weakness SNOMED Code(s): 29315370 Code(s): R53.1 - WEAKNESS Status: Acute Priority: Medium Current Visit : Yes
--- NOTE | 2019-04-20 21:53 | CRLCT ---
INDICATION: Increase in falls over the past month. TECHNIQUE: CT head without contrast. COMPARISON: None. FINDINGS: There is no intracranial bleed or mass effect. There is extensive low density throughout the deep white matter. There is focal encephalomalacia within the right occipital lobe consistent with an old infarction as well as bilateral old cerebellar lacunar infarcts. Mild atherosclerotic calcification is present. IMPRESSION: 1. No intracranial bleed or mass effect. 2. 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 3. Nonspecific white matter disease, likely microangiopathy. Please note that all CT scans at this facility use dose modulation, iterative reconstruction, and/or weight-based dosing when appropriate to reduce radiation dose to as low as reasonably achievable. Dictated by Nelson West MD @ Apr 20 2019 9:48PM Signed by Dr. Nelson West @ Apr 20 2019 9:51PM
== END 2019-04-20 22:49 | disposition home or self-care (01) ==
LOC: JP.ED 20:29
DX: R53.1 Weakness (principal); I10 Essential (primary) hypertension; K21.9 Gastro-esophageal reflux disease without esophagitis; M19.90 Unspecified osteoarthritis, unspecified site; F03.90 Unspecified dementia, unspecified severity, without behavioral disturbance, psychotic disturbance, mood disturbance, and anxiety; Z79.82 Long term (current) use of aspirin; Z79.01 Long term (current) use of anticoagulants; Z86.73 Personal history of transient ischemic attack (TIA), and cerebral infarction without residual deficits
CPT/HCPCS: 36415; 70450; 80053; 85025; 99285-25

== ENCOUNTER 2019-04-28 11:23 | Emergency (ER) | payer MEDICARE, BC ==
[2019-04-28 11:56] VITALS: BP 133/75; PULSE 86
--- NOTE | 2019-04-28 12:26 | EDM.PDOC ---
ED HPI GENERAL MEDICAL PROBLEM - General Chief Complaint: Genitourinary Problem Stated Complaint: PENIS IS BLEEDING Time Seen by Provider: 04/28/19 12:13 Source of Information: Reports: Patient, Family, RN Notes Reviewed History Limitations: Reports: Physical Impairment - History of Present Illness INITIAL COMMENTS - FREE TEXT/NARRATIVE: 83-year-old gentleman presents to the emergency department today complaint of blood in his urine, he is severely demented his is with him she noticed a blood tip of his penis just this morning, he does have a habit of rolling up toilet paper and dabbing the tip of his penis to be time he urinates Lower Back Pain Score (Numeric/FACES): 3 - Related Data Allergies Allergy/AdvReac Type Severity Reaction Status Date / Time No Known Allergies Allergy Verified 04/28/19 11:36 Home Meds: Home Meds Aspirin 81 mg PO DAILY 06/02/17 [History] Cholecalciferol (Vitamin D3) [Vitamin D3] 1,000 unit PO DAILY 06/02/17 [History] Losartan [Cozaar] 25 mg PO DAILY 06/02/17 [History] Omeprazole 40 mg PO BID 06/02/17 [History] Warfarin [Coumadin] 6 mg PO DAILY 06/02/17 [History] Lutein 40 mg PO DAILY 06/04/17 [History] Amoxicillin 500 mg PO ASDIRECTED 04/20/19 [History] Venlafaxine HCl [Venlafaxine ER] 37.5 mg PO DAILY 04/20/19 [History] Past Medical History HEENT History: Reports: Hard of Hearing, Impaired Vision Cardiovascular History: Reports: Hypertension Gastrointestinal History: Reports: GERD Musculoskeletal History: Reports: Arthritis Neurological History: Reports: CVA, TIA, Vertigo Psychiatric History: Reports: Dementia Other Psychiatric History: early stages - Infectious Disease History Infectious Disease History: Reports: C-Difficile - Past Surgical History Head Surgeries/Procedures: Reports: None Cardiovascular Surgical History: Reports: Valve Replacement Musculoskeletal Surgical History: Reports: Knee Replacement Other Musculoskeletal Surgeries/Procedures:: right knee Social & Family History - Family History Family Medical History: Unobtainable Cardiac: Reports: CAD - Tobacco Use Smoking Status *Q: Never Smoker Second Hand Smoke Exposure: No - Caffeine Use Caffeine Use: Reports: Soda - Recreational Drug Use Recreational Drug Use: No ED ROS GENERAL - Review of Systems Review Of Systems: See Below Constitutional: Reports: No Symptoms : Reports: Hematuria ED EXAM, RENAL/ - Physical Exam Exam: See Below Text/Narrative:: Examination of the penis after the foreskin is pulled back there is a fair amount of smegma that is also whitish discharge the glans of the penis varies mosaic pattern of red and white there is a small cut the tip of the urethra bright red blood is present Exam Limited By: Physical Impairment General Appearance: Alert Respiratory/Chest: No Respiratory Distress Course - Vital Signs Last Recorded V/S: Last Vital Signs Temp 96.6 F 04/28/19 11:54 Pulse 86 04/28/19 11:54 Resp 20 04/28/19 11:54 BP 133/75 04/28/19 11:54 Pulse Ox 95 04/28/19 11:54 - Orders/Labs/Meds Labs: Laboratory Tests 04/28/19 Range/Units 11:43 Urine Color Yellow Urine Appearance Clear Urine pH 5.0 (4.5-8.0) Ur Specific [place]coe 1.015 (1.008-1.030) Urine Protein Negative (NEGATIVE) mg/dL Urine Glucose (UA) Normal (NEGATIVE) mg/dL Urine Ketones Negative (NEGATIVE) mg/dL Urine Occult Blood Trace (NEGATIVE) Urine Nitrite Negative (NEGAITVE) Urine Bilirubin Negative (NEGATIVE) Urine Urobilinogen Normal (NORMAL) mg/dL Ur Leukocyte Esterase Negative (NEGATIVE) Urine RBC Not seen (0-5) Urine WBC Not seen (0-5) Ur Epithelial Cells Not seen Amorphous Sediment Rare Urine Bacteria Not seen Urine Mucus Not seen Departure - Departure Time of Disposition: 12:25 Disposition: Home, Self-Care 01 Condition: Fair Clinical Impression: Balanitis - Discharge Information Referrals: Pedro Trinidad MD [Primary Care Provider] - Additional Instructions: Continue to use the antifungal cream until clear, Please followup with your primary care provider in 3-5 days if not better, please call return to the emergency department with worsening of symptoms. - Assessment/Plan Plan: Assessment Acuity = acute Site and laterality = balanitis with urethral laceration Etiology = fungal underlying infection with trauma to the urethra with a paper cut Manifestations = none Location of injury = Home Lab values = urinalysis unremarkable no blood Plan I did review lab work with his to do nystatin topical cream 4 times a day until clear follow-up primary care 3-5 days if no improvement This note was dictated using [employer] voice recognition software please call with any questions on syntax or grammar.
== END 2019-04-28 12:15 | disposition home or self-care (01) ==
LOC: JP.ED 11:23
DX: N48.1 Balanitis (principal); I10 Essential (primary) hypertension; K21.9 Gastro-esophageal reflux disease without esophagitis; Z79.82 Long term (current) use of aspirin; X50.1XXA Overexertion from prolonged static or awkward postures, initial encounter; Z79.01 Long term (current) use of anticoagulants; Z79.899 Other long term (current) drug therapy
CPT/HCPCS: 81001; 99283

== ENCOUNTER 2019-05-18 18:20 | Emergency (ER) | payer MEDICARE, BC ==
--- NOTE | 2019-05-18 18:48 | EDM.PDOC ---
ED HPI GENERAL MEDICAL PROBLEM - General Chief Complaint: Respiratory Problem Stated Complaint: CHOKING VIA [place]TH Time Seen by Provider: 05/18/19 18:30 Source of Information: Reports: Patient, EMS, Family, Old Records History Limitations: Reports: No Limitations - History of Present Illness INITIAL COMMENTS - FREE TEXT/NARRATIVE: 83 yo male with mild dementia, a pHx of CVA, and recent swallowing troubles presents via EMS for evaluation after a prolonged choking episode. He had finished most of his dinner and was eating a cookie when he began to choke. The pounded on his back and called 911. By the time EMS arrived he was doing much better. He was transported with normal vitals. There is a swallow study pending. Onset: Today Onset Date: 05/18/19 Onset Time: 18:10 Duration: Minutes:, Resolved Prior to Arrival Location: Reports: Chest Quality: Reports: Other (no pain reported) Improves with: Reports: Other (time) Worsens with: Reports: Eating Context: Reports: Other (see HPI) Associated Symptoms: Reports: Cough, Shortness of Breath Treatments LEATHER [employer]T SHAPER: Reports: Other (see below) (See HPI) - Related Data Allergies Allergy/AdvReac Type Severity Reaction Status Date / Time No Known Allergies Allergy Verified 05/18/19 19:06 Home Meds: Home Meds Aspirin 81 mg PO DAILY 06/02/17 [History] Cholecalciferol (Vitamin D3) [Vitamin D3] 1,000 unit PO DAILY 06/02/17 [History] Losartan [Cozaar] 25 mg PO DAILY 06/02/17 [History] Omeprazole 40 mg PO BID 06/02/17 [History] Warfarin [Coumadin] 6 mg PO DAILY 06/02/17 [History] Lutein 40 mg PO DAILY 06/04/17 [History] Amoxicillin 500 mg PO ASDIRECTED 04/20/19 [History] Venlafaxine HCl [Venlafaxine ER] 37.5 mg PO DAILY 04/20/19 [History] Multivitamin [Gummi Bear Multivitamin] 2 each PO DAILY 05/18/19 [History] Past Medical History HEENT History: Reports: Hard of Hearing, Impaired Vision Cardiovascular History: Reports: Hypertension Gastrointestinal History: Reports: GERD Musculoskeletal History: Reports: Arthritis Neurological History: Reports: CVA, TIA, Vertigo Psychiatric History: Reports: Dementia Other Psychiatric History: early stages - Infectious Disease History Infectious Disease History: Reports: C-Difficile - Past Surgical History Head Surgeries/Procedures: Reports: None Cardiovascular Surgical History: Reports: Valve Replacement Musculoskeletal Surgical History: Reports: Knee Replacement Other Musculoskeletal Surgeries/Procedures:: right knee Social & Family History - Family History Family Medical History: Unobtainable Cardiac: Reports: CAD - Caffeine Use Caffeine Use: Reports: Soda ED ROS GENERAL - Review of Systems Review Of Systems: See Below Constitutional: Reports: No Symptoms HEENT: Reports: No Symptoms Respiratory: Reports: Shortness of Breath (now better), Cough (now better) Cardiovascular: Reports: No Symptoms GI/Abdominal: Reports: Difficulty Swallowing (poor coordination chronically with swallowing.) : Reports: No Symptoms Musculoskeletal: Reports: No Symptoms Skin: Reports: No Symptoms Neurological: Reports: Confusion (mild, chronic) ED EXAM, GENERAL - Physical Exam Exam: See Below Exam Limited By: No Limitations General Appearance: Alert, WD/WN, No Apparent Distress, Thin Eye Exam: Bilateral Eye: Normal Inspection Ears: Normal External Exam, Normal Canal, Hearing Grossly Normal, Other ( partial cerumen impactions bilaterally) Ear Exam: Bilateral Ear: Auricle Normal, Canal Normal, TM normal Nose: Normal Inspection, No Blood Throat/Mouth: Normal Inspection, Normal Lips, Normal Oropharynx, Normal Voice, No Airway Compromise Head: Atraumatic, Normocephalic Neck: Normal Inspection Respiratory/Chest: No Respiratory Distress, Lungs Clear, Normal Breath Sounds, No Accessory Muscle Use Cardiovascular: Regular Rate, Rhythm, No Edema GI/Abdominal: Normal Bowel Sounds, Soft, Non-Tender, No Distention Back Exam: Normal Inspection. No: CVA Tenderness (R), CVA Tenderness (L) Extremities: Normal Inspection, Normal Range of Motion, Non-Tender, No Pedal Edema Neurological: Alert, Oriented, CN II-XII Intact, Normal Cognition, No Motor/ Sensory Deficits Psychiatric: Normal Affect, Normal Mood Skin Exam: Warm, Dry, No Rash, Erythema (Has a red area over the coccyx/central sacrum from too much continuous pressure over this area. ) Course - Vital Signs Text/Narrative:: swallowed applesauce here in the ER without difficulty. Looked like he was chewing the 1 tsp of applesauce and eventually swallowed it about 45 sec later. Breathing fine now after observation in the ER. Last Recorded V/S: Last Vital Signs Temp 35.8 C 05/18/19 19:13 Pulse 90 05/18/19 19:13 Resp 18 05/18/19 19:13 BP 143/74 H 05/18/19 19:13 Pulse Ox 98 05/18/19 19:13 Departure - Departure Time of Disposition: 19:30 Disposition: Home, Self-Care 01 Condition: Good Clinical Impression: Choking episode Sacral pressure ulcer Qualifiers: Pressure injury stage: stage 1 Qualified Code(s): L89.151 - Pressure ulcer of sacral region, stage 1 - Discharge Information *PRESCRIPTION DRUG MONITORING PROGRAM REVIEWED*: No *COPY OF PRESCRIPTION DRUG MONITORING REPORT IN PATIENT FAIZA: No Referrals: Pedro Trinidad MD [Primary Care Provider] - Forms: ED Department Discharge Additional Instructions: Continue working with the speech therapist on techniques to avoid choking. Keep weight off the sacrum to prevent decubitus ulcer formation. Try shifting to the sides every hour. Look into getting a pressure pad to further help in this regard. F/U with your doctor for re-examination of the sacral area.
[2019-05-18 19:14] VITALS: BP 143/74; PULSE 90
== END 2019-05-18 20:06 | disposition home or self-care (01) ==
LOC: JP.ED 18:20
DX: R09.89 Other specified symptoms and signs involving the circulatory and respiratory systems (principal); L89.151 Pressure ulcer of sacral region, stage 1; H61.23 Impacted cerumen, bilateral; I10 Essential (primary) hypertension; K21.9 Gastro-esophageal reflux disease without esophagitis; F03.90 Unspecified dementia, unspecified severity, without behavioral disturbance, psychotic disturbance, mood disturbance, and anxiety; Z79.82 Long term (current) use of aspirin; Z79.899 Other long term (current) drug therapy; Z79.01 Long term (current) use of anticoagulants; Z86.73 Personal history of transient ischemic attack (TIA), and cerebral infarction without residual deficits
CPT/HCPCS: 99284

== ENCOUNTER 2019-05-29 13:31 | Observation (INO) | payer MEDICARE, BC ==
[2019-05-29] MEDS ORDERED: Sodium Chloride 0.9% 10 ML Syringe FLUSH PRN (13:33)
[2019-05-29] MEDS: Sodium Chloride 0.9% 1,000 ML IV SCH ×2 (13:49→15:48)
--- NOTE | 2019-05-29 13:54 | EDM.PDOC ---
ED HPI GENERAL MEDICAL PROBLEM - General Chief Complaint: General Stated Complaint: HEART ISSUES Time Seen by Provider: 05/29/19 13:45 Source of Information: Reports: Patient, EMS History Limitations: Reports: Other (Dementia) - History of Present Illness INITIAL COMMENTS - FREE TEXT/NARRATIVE: Alex is an 83 year old male, hx of dementia, CVA, CAD with aortic valve replacement, on warfarin, presents to the ED today via EMS after he had an episode of weakness. Patient lives at home with who is his main caregiver. Patient was using his walker and ambulated to bathroom, c/o chest pain, became weak, sat patient on toilet and he couldn't get up, at that time she called 911. Patient denies any pain currently. Patient denies any complaints on arrival, no abnormalities on 12 lead per EMS. No vomiting or diarrhea reported, no recent illness. Onset: Sudden - Related Data Allergies Allergy/AdvReac Type Severity Reaction Status Date / Time No Known Allergies Allergy Verified 05/18/19 19:06 Home Meds: Home Meds Aspirin 81 mg PO DAILY 06/02/17 [History] Cholecalciferol (Vitamin D3) [Vitamin D3] 1,000 unit PO DAILY 06/02/17 [History] Losartan [Cozaar] 25 mg PO DAILY 06/02/17 [History] Omeprazole 40 mg PO BID 06/02/17 [History] Warfarin [Coumadin] 6 mg PO DAILY 06/02/17 [History] Lutein 40 mg PO DAILY 06/04/17 [History] Amoxicillin 500 mg PO ASDIRECTED 04/20/19 [History] Venlafaxine HCl [Venlafaxine ER] 37.5 mg PO DAILY 04/20/19 [History] Multivitamin [Gummi Bear Multivitamin] 2 each PO DAILY 05/18/19 [History] Past Medical History HEENT History: Reports: Hard of Hearing, Impaired Vision Cardiovascular History: Reports: Hypertension Gastrointestinal History: Reports: GERD Musculoskeletal History: Reports: Arthritis Neurological History: Reports: CVA, TIA, Vertigo Psychiatric History: Reports: Dementia Other Psychiatric History: early stages Endocrine/Metabolic History: Reports: Vitamin D Deficiency Hematologic History: Reports: Anticoagulation Therapy - Infectious Disease History Infectious Disease History: Reports: C-Difficile - Past Surgical History Head Surgeries/Procedures: Reports: None Cardiovascular Surgical History: Reports: Valve Replacement Musculoskeletal Surgical History: Reports: Knee Replacement Other Musculoskeletal Surgeries/Procedures:: right knee Social & Family History - Family History Family Medical History: Unobtainable Cardiac: Reports: CAD - Tobacco Use Smoking Status *Q: Unknown Ever Smoked - Caffeine Use Caffeine Use: Reports: Soda ED ROS GENERAL - Review of Systems Review Of Systems: ROS reveals no pertinent complaints other than HPI. ED EXAM, GENERAL - Physical Exam Exam: See Below Exam Limited By: Other (Dementia) General Appearance: Alert, WD/WN, No Apparent Distress Eye Exam: Bilateral Eye: EOMI Ears: Normal TMs Throat/Mouth: Normal Inspection Head: Atraumatic Neck: Supple, Non-Tender Respiratory/Chest: No Respiratory Distress, Lungs Clear, Normal Breath Sounds Cardiovascular: Other (mechanical click, tachycardic) Peripheral Pulses: 2+: Dorsalis Pedis (L), Dorsalis Pedis (R) GI/Abdominal: Normal Bowel Sounds, Soft, Non-Tender Back Exam: Normal Inspection Extremities: Normal Inspection Neurological: Alert Psychiatric: Normal Affect Skin Exam: Warm, Dry, Intact EKG INTERPRETATION EKG Date: 05/29/19 Time: 13:40 Rhythm: NSR Seanor: Normal P-Wave: Present QRS: Normal ST-T: Normal QT: Normal EKG Interpretation Comments: EKG states ventricular paced complexes? no pacer spikes seen, NSR with some occasional PVC's. No ST elevation or other acute findings. Course - Vital Signs Last Recorded V/S: Last Vital Signs Temp 35.4 C 05/29/19 15:06 Pulse 79 05/29/19 15:06 Resp 18 05/29/19 13:39 BP 126/57 L 05/29/19 15:06 Pulse Ox 96 05/29/19 15:06 Alex is an 83 year old male, presents to the ED via EMS with , reported sudden onset of weakness earlier today. Please refer to HPI and focused exam. Patient on arrival here is afebrile, mildly tachycardic with soft blood pressure , concern for infectious etiology vs. dehydration. PIV established, patient given IV fluids, blood work including blood cultures, lactic acid and procalcitonin obtained. White count returns normal, there is a left shift. Lactic acid 2.9, blood cultures pending, procalcitonin is negative. INR supratherapeutic at 4.1. CMP with sodium of 133, BUN of 50, Creatinine of 1.2 and GFR of 58. Glucose of 126. CXR obtained, no obvious infiltrates. BNP and troponin unremarkable. Patient started on IV Zosyn. UA obtained via straight cath, UA negative. Likely patient's symptoms are secondary to dehydration in light of normal or negative procalcitonin. At this time, patient will be admitted to observation for generalized weakness, hypotension and tachycardia pending blood cultures. Patient and family updated on plan of care and agreeable. Patient accepted by Officer, hospitalist, admitted in stable condition. - Orders/Labs/Meds Orders: Active Orders 24 hr Category Date Time Status Patient Status [ADT] Routine ADT 05/29/19 15:38 Active EKG Documentation Completion [RC] ASDIRECTED Care 05/29/19 13:35 Active Height and Weight [RC] UPON Care 05/29/19 15:38 Active Intake and Output [RC] QSHIFT Care 05/29/19 15:41 Active Oxygen Therapy [RC] PRN Care 05/29/19 15:38 Active Peripheral IV Care [RC] . DIRECTED Care 05/29/19 13:34 Active Up With Assistance [RC] ASDIRECTED Care 05/29/19 15:38 Active VTE/DVT Education [RC] Per Unit Routine Care 05/29/19 15:38 Active Vital Signs [RC] Q4H Care 05/29/19 15:38 Active Regular Diet [DIET] Diet 05/29/19 Dinner Active BASIC METABOLIC PANEL,BMP [CHEM] AM Lab 05/30/19 05:11 Ordered CBC WITH AUTO DIFF [HEME] AM Lab 05/30/19 05:11 Ordered CULTURE BLOOD [BC] Urgent Lab 05/29/19 14:10 Received CULTURE BLOOD [BC] Urgent Lab 05/29/19 14:20 Received CULTURE URINE [RM] Urgent Lab 05/29/19 15:16 Received INR,PT,PROTHROMBIN TIME [COAG] AM Lab 05/30/19 05:11 Ordered TROPONIN I [CHEM] Routine Lab 05/29/19 18:00 Ordered Acetaminophen [Tylenol] Med 05/29/19 15:38 Ordered 650 mg PO Q4H PRN Aspirin Med 05/30/19 09:00 Ordered 81 mg PO DAILY Lactated Ringers [Ringers, Lactated] 1,000 ml Med 05/29/19 15:45 Ordered IV ASDIRECTED Losartan [Cozaar] Med 05/30/19 09:00 Ordered 25 mg PO DAILY Lutein [Lutein] Med 05/30/19 09:00 Ordered 40 mg PO DAILY Omeprazole [Omeprazole] Med 05/29/19 21:00 Ordered 40 mg PO BID Ondansetron [Zofran ODT] Med 05/29/19 15:38 Ordered 4 mg PO Q6H PRN Piperacillin/Tazobactam/Dext [Zosyn in Dextrose Iso- Med 05/29/19 15:30 Active Osmotic] 4.5 gm Premix Bag 1 bag IV ONETIME Sodium Chloride 0.9% [Normal Saline] 1,000 ml Med 05/29/19 13:45 Active IV ASDIRECTED Sodium Chloride 0.9% [Saline Flush] Med 05/29/19 13:33 Active 10 ml FLUSH ASDIRECTED PRN Venlafaxine [Effexor XR] Med 05/30/19 09:00 Ordered 37.5 mg PO DAILY Blood Culture x2 Reflex Set [OM.PC] Urgent Oth 05/29/19 13:56 Ordered Peripheral IV Insertion Adult [OM.PC] Routine Oth 05/29/19 13:33 Ordered Sequential Compression Device [OM.PC] Per Unit Routine Oth 05/29/19 15:41 Ordered Resuscitation Status Routine Resus Stat 05/29/19 15:38 Ordered EKG 12 Lead [EK] Stat Ther 05/29/19 13:35 Ordered Medication Orders Acetaminophen (Tylenol) 650 mg PO Q4H PRN PRN Reason: Pain (Mild 1-3)/fever Aspirin (Aspirin) 81 mg PO DAILY PAL Sodium Chloride (Normal Saline) 1,000 mls @ 125 mls/hr IV ASDIRECTED PAL Last Admin: 05/29/19 15:48 Dose: 125 mls/hr Piperacillin/Tazobactam/ (Dextrose 4.5 gm/ Premix) 100 mls @ 100 mls/hr IV ONETIME ONE Stop: 05/29/19 16:29 Last Admin: 05/29/19 15:47 Dose: 100 mls/hr Lactated Ringer's (Ringers, Lactated) 1,000 mls @ 125 mls/hr IV ASDIRECTED PAL Losartan Potassium (Cozaar) 25 mg PO DAILY PAL Non-Formulary Medication (Lutein [Lutein]) 40 mg PO DAILY PAL Non-Formulary Medication (Omeprazole [Omeprazole]) 40 mg PO BID [facility] Ondansetron HCl (Zofran Odt) 4 mg PO Q6H PRN PRN Reason: Nausea able to take PO Sodium Chloride (Saline Flush) 10 ml FLUSH ASDIRECTED PRN PRN Reason: Keep Vein Open Last Admin: 05/29/19 13:49 Dose: 10 ml Venlafaxine HCl (Effexor Xr) 37.5 mg PO DAILY [facility] Labs: Laboratory Tests 05/29/19 05/29/19 05/29/19 Range/Units 13:45 13:45 13:45 WBC 8.8 (4.5-11.0) K/uL RBC 4.07 L (4.30-5.90) M/uL Hgb 12.2 (12.0-15.0) g/dL Hct 37.2 L (40.0-54.0) % MCV 91 (80-98) fL MCH 30 (27-31) pg MCHC 33 (32-36) % Plt Count 293 (150-400) K/uL Neut % (Auto) 80 H (36-66) % Lymph % (Auto) 12 L (24-44) % [place] % (Auto) 8 H (2-6) % Eos % (Auto) 1 L (2-4) % Baso % (Auto) 0 (0-1) % PT 40.9 H (9.5-12.0) sec INR 4.10 H* (0.80-1.20) APTT 36.3 H (27.0-36.0) sec Sodium 133 L (140-148) mmol/L Potassium 4.6 (3.6-5.2) mmol/L Chloride 98 L (100-108) mmol/L Carbon Dioxide 26 (21-32) mmol/L Anion Gap 13.6 (5.0-14.0) mmol/L BUN 50 H D (7-18) mg/dL Creatinine 1.2 (0.8-1.3) mg/dL Est Cr Clr Drug Dosing 42.02 mL/min Estimated GFR (MDRD) 58 L (>60) Glucose 126 H (74-106) mg/dL Lactic Acid (0.4-2.0) mmol/L Calcium 8.9 (8.5-10.1) mg/dL Total Bilirubin 0.4 (0.2-1.0) mg/dL AST 30 (15-37) U/L ALT 30 (12-78) U/L Alkaline Phosphatase 136 H (46-116) U/L Troponin I < 0.017 (0.000-0.056) ng/mL NT-Pro-B Natriuret Pep (5-450) pg/mL Total Protein 6.9 (6.4-8.2) g/dL Albumin 3.1 L (3.4-5.0) g/dL Globulin 3.8 H (2.3-3.5) g/dL Albumin/Globulin Ratio 0.8 L (1.2-2.2) Procalcitonin ng/mL Urine Color (YELLOW) Urine Appearance (CLEAR) Urine pH (5.0-8.0) Ur Specific [place] (1.008-1.030) Urine Protein (NEGATIVE) mg/dL Urine Glucose (UA) (NEGATIVE) mg/dL Urine Ketones (NEGATIVE) mg/dL Urine Occult Blood (NEGATIVE) Urine Nitrite (NEGATIVE) Urine Bilirubin (NEGATIVE) Urine Urobilinogen (0.2-1.0) EU/dL Ur Leukocyte Esterase (NEGATIVE) Urine RBC (0-5) Urine WBC (0-5) Ur Epithelial Cells Amorphous Sediment Urine Bacteria Urine Mucus 05/29/19 05/29/19 05/29/19 Range/Units 13:45 13:45 13:56 WBC (4.5-11.0) K/uL RBC (4.30-5.90) M/uL Hgb (12.0-15.0) g/dL Hct (40.0-54.0) % MCV (80-98) fL MCH (27-31) pg MCHC (32-36) % Plt Count (150-400) K/uL Neut % (Auto) (36-66) % Lymph % (Auto) (24-44) % [place] % (Auto) (2-6) % Eos % (Auto) (2-4) % Baso % (Auto) (0-1) % PT (9.5-12.0) sec INR (0.80-1.20) APTT (27.0-36.0) sec Sodium (140-148) mmol/L Potassium (3.6-5.2) mmol/L Chloride (100-108) mmol/L Carbon Dioxide (21-32) mmol/L Anion Gap (5.0-14.0) mmol/L BUN (7-18) mg/dL Creatinine (0.8-1.3) mg/dL Est Cr Clr Drug Dosing mL/min Estimated GFR (MDRD) (>60) Glucose (74-106) mg/dL Lactic Acid 2.9 H (0.4-2.0) mmol/L Calcium (8.5-10.1) mg/dL Total Bilirubin (0.2-1.0) mg/dL AST (15-37) U/L ALT (12-78) U/L Alkaline Phosphatase (46-116) U/L Troponin I (0.000-0.056) ng/mL NT-Pro-B Natriuret Pep 237 (5-450) pg/mL Total Protein (6.4-8.2) g/dL Albumin (3.4-5.0) g/dL Globulin (2.3-3.5) g/dL Albumin/Globulin Ratio (1.2-2.2) Procalcitonin < 0.05 ng/mL Urine Color (YELLOW) Urine Appearance (CLEAR) Urine pH (5.0-8.0) Ur Specific [place] (1.008-1.030) Urine Protein (NEGATIVE) mg/dL Urine Glucose (UA) (NEGATIVE) mg/dL Urine Ketones (NEGATIVE) mg/dL Urine Occult Blood (NEGATIVE) Urine Nitrite (NEGATIVE) Urine Bilirubin (NEGATIVE) Urine Urobilinogen (0.2-1.0) EU/dL Ur Leukocyte Esterase (NEGATIVE) Urine RBC (0-5) Urine WBC (0-5) Ur Epithelial Cells Amorphous Sediment Urine Bacteria Urine Mucus 05/29/19 Range/Units 15:04 WBC (4.5-11.0) K/uL RBC (4.30-5.90) M/uL Hgb (12.0-15.0) g/dL Hct (40.0-54.0) % MCV (80-98) fL MCH (27-31) pg MCHC (32-36) % Plt Count (150-400) K/uL Neut % (Auto) (36-66) % Lymph % (Auto) (24-44) % [place] % (Auto) (2-6) % Eos % (Auto) (2-4) % Baso % (Auto) (0-1) % PT (9.5-12.0) sec INR (0.80-1.20) APTT (27.0-36.0) sec Sodium (140-148) mmol/L Potassium (3.6-5.2) mmol/L Chloride (100-108) mmol/L Carbon Dioxide (21-32) mmol/L Anion Gap (5.0-14.0) mmol/L BUN (7-18) mg/dL Creatinine (0.8-1.3) mg/dL Est Cr Clr Drug Dosing mL/min Estimated GFR (MDRD) (>60) Glucose (74-106) mg/dL Lactic Acid (0.4-2.0) mmol/L Calcium (8.5-10.1) mg/dL Total Bilirubin (0.2-1.0) mg/dL AST (15-37) U/L ALT (12-78) U/L Alkaline Phosphatase (46-116) U/L Troponin I (0.000-0.056) ng/mL NT-Pro-B Natriuret Pep (5-450) pg/mL Total Protein (6.4-8.2) g/dL Albumin (3.4-5.0) g/dL Globulin (2.3-3.5) g/dL Albumin/Globulin Ratio (1.2-2.2) Procalcitonin ng/mL Urine Color Yellow (YELLOW) Urine Appearance Clear (CLEAR) Urine pH 5.5 (5.0-8.0) Ur Specific [place] 1.020 (1.008-1.030) Urine Protein Negative (NEGATIVE) mg/dL Urine Glucose (UA) Normal (NEGATIVE) mg/dL Urine Ketones Negative (NEGATIVE) mg/dL Urine Occult Blood Moderate H (NEGATIVE) Urine Nitrite Negative (NEGATIVE) Urine Bilirubin Negative (NEGATIVE) Urine Urobilinogen 0.2 (0.2-1.0) EU/dL Ur Leukocyte Esterase Negative (NEGATIVE) Urine RBC 5-10 H (0-5) Urine WBC Not seen (0-5) Ur Epithelial Cells Not seen Amorphous Sediment Few Urine Bacteria Not seen Urine Mucus Not seen Meds: Medications Generic Name Dose Route Start Last Admin Trade Name Freq PRN Reason Stop Dose Admin Acetaminophen 650 mg 05/29/19 15:38 Tylenol PO Q4H PRN Pain (Mild 1-3)/fever Aspirin 81 mg 05/30/19 09:00 Aspirin PO DAILY PAL Sodium Chloride 1,000 mls @ 125 mls/hr 05/29/19 13:45 05/29/19 15:48 Normal Saline IV 125 mls/hr ASDIRECTED PAL Administration Piperacillin/Tazobactam/ 100 mls @ 100 mls/hr 05/29/19 15:30 05/29/19 15:47 Dextrose 4.5 gm/ Premix IV 05/29/19 16:29 100 mls/hr ONETIME ONE Administration Lactated Ringer's 1,000 mls @ 125 mls/hr 05/29/19 15:45 Ringers, Lactated IV ASDIRECTED PAL Losartan Potassium 25 mg 05/30/19 09:00 Cozaar PO DAILY PAL Non-Formulary Medication 40 mg 05/30/19 09:00 Lutein [Lutein] PO DAILY [facility] Non-Formulary Medication 40 mg 05/29/19 21:00 Omeprazole [Omeprazole] PO BID [facility] Ondansetron HCl 4 mg 05/29/19 15:38 Zofran Odt PO Q6H PRN Nausea able to take PO Sodium Chloride 10 ml 05/29/19 13:33 05/29/19 13:49 Saline Flush FLUSH 10 ml ASDIRECTED PRN Administration Keep Vein Open Venlafaxine HCl 37.5 mg 05/30/19 09:00 Effexor Xr PO DAILY [facility] Discontinued Medications Generic Name Dose Route Start Last Admin Trade Name Meredith PRN Reason Stop Dose Admin Sodium Chloride 1,000 mls @ 999 mls/hr 05/29/19 13:55 05/29/19 14:26 Normal Saline IV 05/29/19 14:55 999 mls/hr .BOLUS ONE Administration Piperacillin Sod/Tazobactam 100 mls @ 100 mls/hr 05/29/19 14:37 Sod 4.5 gm/ Sodium Chloride IV 05/29/19 15:36 ONETIME ONE Lidocaine HCl 10 ml 05/29/19 14:46 05/29/19 15:05 Xylocaine 2% Jelly MUCMEM 05/29/19 14:47 10 ml ONETIME ONE Administration Departure - Departure Time of Disposition: 16:30 Disposition: Admitted As Inpatient 67 Condition: Fair Clinical Impression: Weakness generalized, Tachycardia, Elevated BUN Hypotension Qualifiers: Hypotension type: unspecified hypotension type Qualified Code(s): I95.9 - Hypotension, unspecified - Discharge Information Referrals: Pedro Trinidad MD [Primary Care Provider] - Forms: ED Department Discharge - My Orders Last 24 Hours: My Active Orders 05/29/19 13:33 Sodium Chloride 0.9% [Saline Flush] 10 ml FLUSH ASDIRECTED PRN Peripheral IV Insertion Adult [OM.PC] Routine 05/29/19 13:34 Peripheral IV Care [RC] . DIRECTED 05/29/19 13:35 EKG Documentation Completion [RC] ASDIRECTED EKG 12 Lead [EK] Stat 05/29/19 13:45 Sodium Chloride 0.9% [Normal Saline] 1,000 ml IV ASDIRECTED 05/29/19 13:56 Blood Culture x2 Reflex Set [OM.PC] Urgent 05/29/19 14:10 CULTURE BLOOD [BC] Urgent 05/29/19 14:20 CULTURE BLOOD [BC] Urgent 05/29/19 15:30 Piperacillin/Tazobactam/Dext [Zosyn in Dextrose Iso-Osmotic] 4.5 gm Premix Bag 1 bag IV ONETIME - Assessment/Plan Last 24 Hours: My Active Orders 05/29/19 13:33 Sodium Chloride 0.9% [Saline Flush] 10 ml FLUSH ASDIRECTED PRN Peripheral IV Insertion Adult [OM.PC] Routine 05/29/19 13:34 Peripheral IV Care [RC] . DIRECTED 05/29/19 13:35 EKG Documentation Completion [RC] ASDIRECTED EKG 12 Lead [EK] Stat 05/29/19 13:45 Sodium Chloride 0.9% [Normal Saline] 1,000 ml IV ASDIRECTED 05/29/19 13:56 Blood Culture x2 Reflex Set [OM.PC] Urgent 05/29/19 14:10 CULTURE BLOOD [BC] Urgent 05/29/19 14:20 CULTURE BLOOD [BC] Urgent 05/29/19 15:30 Piperacillin/Tazobactam/Dext [Zosyn in Dextrose Iso-Osmotic] 4.5 gm Premix Bag 1 bag IV ONETIME
[2019-05-29] MEDS ORDERED: Sodium Chloride 0.9% 1,000 ML IV ONE (13:55)
[2019-05-29] MEDS ORDERED: Piperacillin/Tazobactam 4.5 GM in Sodium Chloride 0.9% 100 ML IV ONE (14:37)
--- NOTE | 2019-05-29 14:40 | CRLCR ---
HISTORY: Cough. Weakness. TECHNIQUE: Two-view chest. COMPARISON: None. FINDINGS: Sternal wires. Cardiac valve prosthesis. Linearly oriented calcification projecting over the right lung apex may be vascular calcification or small calcified pleural plaque. No airspace consolidation. No pleural effusion or pneumothorax. Cardiomediastinal silhouette size is normal. Aortic atherosclerotic calcifications. Degenerative changes of the spine. IMPRESSION: No acute cardiopulmonary abnormality. Dictated by Andry Sherman MD @ May 29 2019 2:38PM Signed by Dr. Andry Sherman @ May 29 2019 2:39PM
[2019-05-29] MEDS ORDERED: Lidocaine 2% Jelly 10 ML Urojet MUCMEM ONE (14:46)
[2019-05-29] MEDS ORDERED: Piperacillin/Tazobactam/Dext 4.5 GM in Premix Bag 1 BAG IV ONE (15:30)
[2019-05-29] MEDS ORDERED: Acetaminophen 325 MG Tab PO PRN (15:38)
[2019-05-29] MEDS ORDERED: Ondansetron 4 MG Tab.DIS PO PRN (15:38)
[2019-05-29] MEDS ORDERED: Lactated Ringers 1,000 ML IV SCH (15:45)
--- NOTE | 2019-05-29 15:50 | PCM.HP ---
H&P History of Present Illness - General Date of Service: 05/29/19 Admit Problem/Dx: Admission Diagnosis/Problem Admission Diagnosis/Problem Weakness Source of Information: Patient, Family, Old Records, RN Notes Reviewed History Limitations: Reports: Physical Impairment - History of Present Illness Initial Comments - Free Text/Narative: 83-year-old gentleman presents to the emergency department via EMS services complaint of sudden onset of weakness and chest pain. He has a known history of dementia difficult to obtain review of systems secondary to his memory issues family members are present so the review of systems and history of present illness is obtained from family. On initial evaluation by emergency staff found to be tachycardic and hypotensive however was not complaining of chest pain at that time. Family members are uncertain if he was actually having chest pain as he tends to forget quite easily. They did observe him having difficulty walking his walker with an episode of weakness while he was going to the bathroom. They have felt he has had a significant decline in his overall functioning over the last couple of months. 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 - Related Data Allergies/Adverse Reactions: Allergies Allergy/AdvReac Type Severity Reaction Status Date / Time No Known Allergies Allergy Verified 05/18/19 19:06 Home Medications: Home Meds Aspirin 81 mg PO DAILY 06/02/17 [History] Cholecalciferol (Vitamin D3) [Vitamin D3] 1,000 unit PO DAILY 06/02/17 [History] Losartan [Cozaar] 25 mg PO DAILY 06/02/17 [History] Omeprazole 40 mg PO BID 06/02/17 [History] Warfarin [Coumadin] 6 mg PO DAILY 06/02/17 [History] Lutein 40 mg PO DAILY 06/04/17 [History] Amoxicillin 500 mg PO ASDIRECTED 04/20/19 [History] Venlafaxine HCl [Venlafaxine ER] 37.5 mg PO DAILY 04/20/19 [History] Multivitamin [Gummi Bear Multivitamin] 2 each PO DAILY 05/18/19 [History] Past Medical History HEENT History: Reports: Hard of Hearing, Impaired Vision Cardiovascular History: Reports: Heart Valve Replacement, Hypertension Gastrointestinal History: Reports: GERD Musculoskeletal History: Reports: Arthritis Neurological History: Reports: CVA, TIA, Vertigo Psychiatric History: Reports: Dementia Other Psychiatric History: early stages Endocrine/Metabolic History: Reports: Vitamin D Deficiency Hematologic History: Reports: Anticoagulation Therapy - Infectious Disease History Infectious Disease History: Reports: C-Difficile - Past Surgical History Head Surgeries/Procedures: Reports: None Cardiovascular Surgical History: Reports: Valve Replacement Musculoskeletal Surgical History: Reports: Knee Replacement Other Musculoskeletal Surgeries/Procedures:: right knee Social & Family History - Family History Family Medical History: Unobtainable Cardiac: Reports: CAD - Tobacco Use Smoking Status *Q: Never Smoker - Caffeine Use Caffeine Use: Reports: Soda H&P Review of Systems - Review of Systems: Review Of Systems: ROS reveals no pertinent complaints other than HPI. Exam - Exam Exam: See Below - Vital Signs Vital Signs: Last Vital Signs Temp 95.7 F 05/29/19 15:06 Pulse 79 05/29/19 15:06 Resp 18 05/29/19 13:39 BP 126/57 L 05/29/19 15:06 Pulse Ox 96 05/29/19 15:06 Weight: 62.596 kg - Exam Physical Exam Comments:: General: Elderly male, not in any distress, alert HEENT: head is atraumatic normocephalic, eyes pupils equal round reactive to light, sclera clear no conjunctivitis appreciated. Ears tympanic membranes clear and pittman landmarks and light reflex are present bilaterally canals are clear. Nose no septal deviation, nares are clear, no blood present. Mouth mucosa is moist and pink no erythema or exudate noted in soft palate, tongue is midline uvula is midline , dentition is intact. Neck: Supple no thyromegaly no tracheal deviation. Nodes: Cervical nodes subclavicular nodes nontender no palpable lymphadenopathy noted. Lungs: clear to auscultation bilaterally with symmetrical respirations, no adventitious noise appreciated. CV: Regular rate and rhythm S1 and S2 appreciated no murmurs rubs or gallops noted. Abdomen: Soft, nontender, no palpable masses or organomegaly appreciated, no distention no guarding bowel sounds are present, . Neuro: GCS of 15 Skin: Warm and dry, intact Extremities: No lower extremity edema appreciated, pedal pulse is +2. - Patient Data Lab Results Last 24 hrs: Laboratory Results - last 24 hr 05/29/19 05/29/19 05/29/19 Range/Units 13:45 13:45 13:45 WBC 8.8 (4.5-11.0) K/uL RBC 4.07 L (4.30-5.90) M/uL Hgb 12.2 (12.0-15.0) g/dL Hct 37.2 L (40.0-54.0) % MCV 91 (80-98) fL MCH 30 (27-31) pg MCHC 33 (32-36) % Plt Count 293 (150-400) K/uL Neut % (Auto) 80 H (36-66) % Lymph % (Auto) 12 L (24-44) % Caroline % (Auto) 8 H (2-6) % Eos % (Auto) 1 L (2-4) % Baso % (Auto) 0 (0-1) % PT 40.9 H (9.5-12.0) sec INR 4.10 H* (0.80-1.20) APTT 36.3 H (27.0-36.0) sec Sodium 133 L (140-148) mmol/L Potassium 4.6 (3.6-5.2) mmol/L Chloride 98 L (100-108) mmol/L Carbon Dioxide 26 (21-32) mmol/L Anion Gap 13.6 (5.0-14.0) mmol/L BUN 50 H D (7-18) mg/dL Creatinine 1.2 (0.8-1.3) mg/dL Est Cr Clr Drug Dosing 42.02 mL/min Estimated GFR (MDRD) 58 L (>60) Glucose 126 H (74-106) mg/dL Lactic Acid (0.4-2.0) mmol/L Calcium 8.9 (8.5-10.1) mg/dL Total Bilirubin 0.4 (0.2-1.0) mg/dL AST 30 (15-37) U/L ALT 30 (12-78) U/L Alkaline Phosphatase 136 H (46-116) U/L Troponin I < 0.017 (0.000-0.056) ng/mL NT-Pro-B Natriuret Pep (5-450) pg/mL Total Protein 6.9 (6.4-8.2) g/dL Albumin 3.1 L (3.4-5.0) g/dL Globulin 3.8 H (2.3-3.5) g/dL Albumin/Globulin Ratio 0.8 L (1.2-2.2) Procalcitonin ng/mL Urine Color (YELLOW) Urine Appearance (CLEAR) Urine pH (5.0-8.0) Ur Specific [place] (1.008-1.030) Urine Protein (NEGATIVE) mg/dL Urine Glucose (UA) (NEGATIVE) mg/dL Urine Ketones (NEGATIVE) mg/dL Urine Occult Blood (NEGATIVE) Urine Nitrite (NEGATIVE) Urine Bilirubin (NEGATIVE) Urine Urobilinogen (0.2-1.0) EU/dL Ur Leukocyte Esterase (NEGATIVE) Urine RBC (0-5) Urine WBC (0-5) Ur Epithelial Cells Amorphous Sediment Urine Bacteria Urine Mucus 05/29/19 05/29/19 05/29/19 Range/Units 13:45 13:45 13:56 WBC (4.5-11.0) K/uL RBC (4.30-5.90) M/uL Hgb (12.0-15.0) g/dL Hct (40.0-54.0) % MCV (80-98) fL MCH (27-31) pg MCHC (32-36) % Plt Count (150-400) K/uL Neut % (Auto) (36-66) % Lymph % (Auto) (24-44) % Caroline % (Auto) (2-6) % Eos % (Auto) (2-4) % Baso % (Auto) (0-1) % PT (9.5-12.0) sec INR (0.80-1.20) APTT (27.0-36.0) sec Sodium (140-148) mmol/L Potassium (3.6-5.2) mmol/L Chloride (100-108) mmol/L Carbon Dioxide (21-32) mmol/L Anion Gap (5.0-14.0) mmol/L BUN (7-18) mg/dL Creatinine (0.8-1.3) mg/dL Est Cr Clr Drug Dosing mL/min Estimated GFR (MDRD) (>60) Glucose (74-106) mg/dL Lactic Acid 2.9 H (0.4-2.0) mmol/L Calcium (8.5-10.1) mg/dL Total Bilirubin (0.2-1.0) mg/dL AST (15-37) U/L ALT (12-78) U/L Alkaline Phosphatase (46-116) U/L Troponin I (0.000-0.056) ng/mL NT-Pro-B Natriuret Pep 237 (5-450) pg/mL Total Protein (6.4-8.2) g/dL Albumin (3.4-5.0) g/dL Globulin (2.3-3.5) g/dL Albumin/Globulin Ratio (1.2-2.2) Procalcitonin < 0.05 ng/mL Urine Color (YELLOW) Urine Appearance (CLEAR) Urine pH (5.0-8.0) Ur Specific [place] (1.008-1.030) Urine Protein (NEGATIVE) mg/dL Urine Glucose (UA) (NEGATIVE) mg/dL Urine Ketones (NEGATIVE) mg/dL Urine Occult Blood (NEGATIVE) Urine Nitrite (NEGATIVE) Urine Bilirubin (NEGATIVE) Urine Urobilinogen (0.2-1.0) EU/dL Ur Leukocyte Esterase (NEGATIVE) Urine RBC (0-5) Urine WBC (0-5) Ur Epithelial Cells Amorphous Sediment Urine Bacteria Urine Mucus 05/29/19 Range/Units 15:04 WBC (4.5-11.0) K/uL RBC (4.30-5.90) M/uL Hgb (12.0-15.0) g/dL Hct (40.0-54.0) % MCV (80-98) fL MCH (27-31) pg MCHC (32-36) % Plt Count (150-400) K/uL Neut % (Auto) (36-66) % Lymph % (Auto) (24-44) % Caroline % (Auto) (2-6) % Eos % (Auto) (2-4) % Baso % (Auto) (0-1) % PT (9.5-12.0) sec INR (0.80-1.20) APTT (27.0-36.0) sec Sodium (140-148) mmol/L Potassium (3.6-5.2) mmol/L Chloride (100-108) mmol/L Carbon Dioxide (21-32) mmol/L Anion Gap (5.0-14.0) mmol/L BUN (7-18) mg/dL Creatinine (0.8-1.3) mg/dL Est Cr Clr Drug Dosing mL/min Estimated GFR (MDRD) (>60) Glucose (74-106) mg/dL Lactic Acid (0.4-2.0) mmol/L Calcium (8.5-10.1) mg/dL Total Bilirubin (0.2-1.0) mg/dL AST (15-37) U/L ALT (12-78) U/L Alkaline Phosphatase (46-116) U/L Troponin I (0.000-0.056) ng/mL NT-Pro-B Natriuret Pep (5-450) pg/mL Total Protein (6.4-8.2) g/dL Albumin (3.4-5.0) g/dL Globulin (2.3-3.5) g/dL Albumin/Globulin Ratio (1.2-2.2) Procalcitonin ng/mL Urine Color Yellow (YELLOW) Urine Appearance Clear (CLEAR) Urine pH 5.5 (5.0-8.0) Ur Specific [place] 1.020 (1.008-1.030) Urine Protein Negative (NEGATIVE) mg/dL Urine Glucose (UA) Normal (NEGATIVE) mg/dL Urine Ketones Negative (NEGATIVE) mg/dL Urine Occult Blood Moderate H (NEGATIVE) Urine Nitrite Negative (NEGATIVE) Urine Bilirubin Negative (NEGATIVE) Urine Urobilinogen 0.2 (0.2-1.0) EU/dL Ur Leukocyte Esterase Negative (NEGATIVE) Urine RBC 5-10 H (0-5) Urine WBC Not seen (0-5) Ur Epithelial Cells Not seen Amorphous Sediment Few Urine Bacteria Not seen Urine Mucus Not seen Result Diagrams: 05/29/19 13:45 05/29/19 13:45 - Problem List (1) Weakness SNOMED Code(s): 97923723 ICD Code: R53.1 - WEAKNESS Status: Acute Priority: High Current Visit: Yes (2) Hypotension SNOMED Code(s): 84956409 ICD Code: I95.9 - HYPOTENSION, UNSPECIFIED Status: Acute Priority: High Current Visit: Yes Qualifiers: Hypotension type: hypotension due to hypovolemia Qualified Code(s): I95.89 - Other hypotension; E86.1 - Hypovolemia (3) Tachycardia SNOMED Code(s): 6368220 ICD Code: R00.0 - TACHYCARDIA, UNSPECIFIED Status: Acute Priority: High Current Visit: Yes (4) Supratherapeutic INR SNOMED Code(s): 216385713 ICD Code: R79.1 - ABNORMAL COAGULATION PROFILE Status: Acute Priority: High Current Visit: Yes Problem List Initiated/Reviewed/Updated: Yes Orders Last 24hrs: Active Orders 24 hr Category Date Time Status Patient Status [ADT] Routine ADT 05/29/19 15:38 Ordered EKG Documentation Completion [RC] ASDIRECTED Care 05/29/19 13:35 Active Height and Weight [RC] UPON Care 05/29/19 15:38 Ordered Intake and Output [RC] QSHIFT Care 05/29/19 15:41 Ordered Oxygen Therapy [RC] PRN Care 05/29/19 15:38 Ordered Peripheral IV Care [RC] . DIRECTED Care 05/29/19 13:34 Active Up With Assistance [RC] ASDIRECTED Care 05/29/19 15:38 Ordered VTE/DVT Education [RC] Per Unit Routine Care 05/29/19 15:38 Ordered Vital Signs [RC] Q4H Care 05/29/19 15:38 Ordered Regular Diet [DIET] Diet 05/29/19 Dinner Ordered BASIC METABOLIC PANEL,BMP [CHEM] AM Lab 05/30/19 05:11 Ordered CBC WITH AUTO DIFF [HEME] AM Lab 05/30/19 05:11 Ordered CULTURE BLOOD [BC] Urgent Lab 05/29/19 14:10 Received CULTURE BLOOD [BC] Urgent Lab 05/29/19 14:20 Received CULTURE URINE [RM] Urgent Lab 05/29/19 15:16 Received INR,PT,PROTHROMBIN TIME [COAG] AM Lab 05/30/19 05:11 Ordered TROPONIN I [CHEM] Timed Lab 05/29/19 18:00 Ordered Acetaminophen [Tylenol] Med 05/29/19 15:38 Ordered 650 mg PO Q4H PRN Aspirin Med 05/30/19 09:00 Ordered 81 mg PO DAILY Lactated Ringers @ 125 MLS/HR(1000ml) Med 05/29/19 15:45 Ordered Lactated Ringers [Ringers, Lactated] 1,000 ml IV ASDIRECTED Losartan [Cozaar] Med 05/30/19 09:00 Ordered 25 mg PO DAILY Lutein [Lutein] Med 05/30/19 09:00 Ordered 40 mg PO DAILY Omeprazole [Omeprazole] Med 05/29/19 21:00 Ordered 40 mg PO BID Ondansetron [Zofran ODT] Med 05/29/19 15:38 Ordered 4 mg PO Q6H PRN Piperacillin/Tazobactam/Dext [Zosyn in Dextrose Iso- Med 05/29/19 15:30 Active Osmotic] 4.5 gm Premix Bag 1 bag IV ONETIME Sodium Chloride 0.9% [Normal Saline] 1,000 ml Med 05/29/19 13:45 Active IV ASDIRECTED Sodium Chloride 0.9% [Saline Flush] Med 05/29/19 13:33 Active 10 ml FLUSH ASDIRECTED PRN Venlafaxine [Effexor XR] Med 05/30/19 09:00 Ordered 37.5 mg PO DAILY Blood Culture x2 Reflex Set [OM.PC] Urgent Oth 05/29/19 13:56 Ordered Peripheral IV Insertion Adult [OM.PC] Routine Oth 05/29/19 13:33 Ordered Sequential Compression Device [OM.PC] Per Unit Routine Oth 05/29/19 15:41 Ordered Resuscitation Status Routine Resus Stat 05/29/19 15:38 Ordered EKG 12 Lead [EK] Stat Ther 05/29/19 13:35 Ordered Medication Orders Acetaminophen (Tylenol) 650 mg PO Q4H PRN PRN Reason: Pain (Mild 1-3)/fever Aspirin (Aspirin) 81 mg PO DAILY PAL Sodium Chloride (Normal Saline) 1,000 mls @ 125 mls/hr IV ASDIRECTED PAL Piperacillin/Tazobactam/ (Dextrose 4.5 gm/ Premix) 100 mls @ 100 mls/hr IV ONETIME ONE Stop: 05/29/19 16:29 Lactated Ringer's (Ringers, Lactated) 1,000 mls @ 125 mls/hr IV ASDIRECTED PAL Losartan Potassium (Cozaar) 25 mg PO DAILY PAL Non-Formulary Medication (Lutein [Lutein]) 40 mg PO DAILY PAL Non-Formulary Medication (Omeprazole [Omeprazole]) 40 mg PO BID PAL Ondansetron HCl (Zofran Odt) 4 mg PO Q6H PRN PRN Reason: Nausea able to take PO Sodium Chloride (Saline Flush) 10 ml FLUSH ASDIRECTED PRN PRN Reason: Keep Vein Open Last Admin: 05/29/19 13:49 Dose: 10 ml Venlafaxine HCl (Effexor Xr) 37.5 mg PO DAILY REPLACED BY [facility] Assessment/Plan Comment:: ASSESSMENT AND PLAN Weakness - multifactorial problem complicating the patient with known history of dementia probably related to ongoing development of the disease in combination with poor oral intake and deconditioning. -PT OT eval and treat Supratherapeutic INR causing hematuria, probably related to poor oral intake with Coumadin producing a small amount of blood in the urine INR is 4.10 with 5- 10 RBCs consistent with hematuria - Hold: Warfarin for now recheck INR in the morning Hypotension and tachycardia - probably related to poor oral intake - Did have good improvement with 1 L bolus in the emergency department we'll continue gentle fluid rehydration through the night MAINTENANCE ISSUES -DVT prophylaxis; supratherapeutic INR will hold off at this time -GI prophylaxis; home medication of pantoprazole -Powell catheter; not indicated at this time -Nutrition; regular diet -Nicotine dependence; not required CODE STATUS-FULL CODE Admission justification - this gentleman does not meet inpatient criteria and therefore he is admitted for observation DISPOSITION - anticipate discharge to home after the hospital stay. PRIMARY CARE PROVIDER - Dr. Amos Navarrete Officer
[2019-05-29] MEDS: Pantoprazole 40 MG Tab.CR PO SCH (17:40)
[2019-05-30] MEDS: Pantoprazole 40 MG Tab.CR PO SCH ×2 (07:03→16:45)
[2019-05-30] MEDS: Sodium Chloride 0.9% 1,000 ML IV SCH (08:53)
[2019-05-30] MEDS: LUTEIN 20 MG PO SCH (08:56)
[2019-05-30] MEDS ORDERED: Aspirin 81 MG Tab.Chew PO SCH (09:00)
[2019-05-30] MEDS ORDERED: LUTEIN 40 MG PO SCH (09:00)
[2019-05-30] MEDS ORDERED: Venlafaxine 37.5 MG Cap.ER PO SCH (09:00)
[2019-05-30] MEDS ORDERED: Losartan 25 MG Tab PO SCH (09:00)
[2019-05-30] MEDS ORDERED: Phytonadione ORAL 5mg/5ml Soln Simple Syrup U/D PO ONE (11:35)
--- NOTE | 2019-05-30 11:37 | PCM.PN ---
- General Info Date of Service: 05/30/19 Subjective Update: There were no acute events overnight. No behavior issues overnight. Patient was able to get up with standby assist and ambulate. No complaints of extreme weakness or fatigue in his legs. He has not had any fevers. Minimal coughing at this time. Not much of an appetite and poor oral intake. He is passing urine with wet briefs. Vital signs have all been stable. Functional Status: Reports: Pain Controlled, Tolerating Diet - Review of Systems General: Reports: Weakness Pulmonary: Reports: Pleuritic Chest Pain Neurological: Reports: Confusion - Patient Data Vitals - Most Recent: Last Vital Signs Temp 35.6 C 05/30/19 10:53 Pulse 74 05/30/19 10:53 Resp 18 05/30/19 10:53 BP 99/48 L 05/30/19 10:53 Pulse Ox 96 05/30/19 10:53 Weight - Most Recent: 57.198 kg I&O - Last 24 Hours: Intake & Output 05/29/19 05/30/19 05/30/19 22:59 06:59 14:59 Intake Total 1100 1477 340 Output Total 100 Balance 1100 1377 340 Lab Results Last 24 Hours: Laboratory Results - last 24 hr 05/29/19 05/29/19 05/29/19 Range/Units 13:45 13:45 13:45 WBC 8.8 (4.5-11.0) K/uL RBC 4.07 L (4.30-5.90) M/uL Hgb 12.2 (12.0-15.0) g/dL Hct 37.2 L (40.0-54.0) % MCV 91 (80-98) fL MCH 30 (27-31) pg MCHC 33 (32-36) % Plt Count 293 (150-400) K/uL Neut % (Auto) 80 H (36-66) % Lymph % (Auto) 12 L (24-44) % [place] % (Auto) 8 H (2-6) % Eos % (Auto) 1 L (2-4) % Baso % (Auto) 0 (0-1) % PT 40.9 H (9.5-12.0) sec INR 4.10 H* (0.80-1.20) APTT 36.3 H (27.0-36.0) sec Sodium 133 L (140-148) mmol/L Potassium 4.6 (3.6-5.2) mmol/L Chloride 98 L (100-108) mmol/L Carbon Dioxide 26 (21-32) mmol/L Anion Gap 13.6 (5.0-14.0) mmol/L BUN 50 H D (7-18) mg/dL Creatinine 1.2 (0.8-1.3) mg/dL Est Cr Clr Drug Dosing 42.02 mL/min Estimated GFR (MDRD) 58 L (>60) Glucose 126 H (74-106) mg/dL Lactic Acid (0.4-2.0) mmol/L Calcium 8.9 (8.5-10.1) mg/dL Total Bilirubin 0.4 (0.2-1.0) mg/dL AST 30 (15-37) U/L ALT 30 (12-78) U/L Alkaline Phosphatase 136 H (46-116) U/L Troponin I < 0.017 (0.000-0.056) ng/mL NT-Pro-B Natriuret Pep (5-450) pg/mL Total Protein 6.9 (6.4-8.2) g/dL Albumin 3.1 L (3.4-5.0) g/dL Globulin 3.8 H (2.3-3.5) g/dL Albumin/Globulin Ratio 0.8 L (1.2-2.2) Procalcitonin ng/mL Urine Color (YELLOW) Urine Appearance (CLEAR) Urine pH (5.0-8.0) Ur Specific Jeff (1.008-1.030) Urine Protein (NEGATIVE) mg/dL Urine Glucose (UA) (NEGATIVE) mg/dL Urine Ketones (NEGATIVE) mg/dL Urine Occult Blood (NEGATIVE) Urine Nitrite (NEGATIVE) Urine Bilirubin (NEGATIVE) Urine Urobilinogen (0.2-1.0) EU/dL Ur Leukocyte Esterase (NEGATIVE) Urine RBC (0-5) Urine WBC (0-5) Ur Epithelial Cells Amorphous Sediment Urine Bacteria Urine Mucus 05/29/19 05/29/19 05/29/19 Range/Units 13:45 13:45 13:56 WBC (4.5-11.0) K/uL RBC (4.30-5.90) M/uL Hgb (12.0-15.0) g/dL Hct (40.0-54.0) % MCV (80-98) fL MCH (27-31) pg MCHC (32-36) % Plt Count (150-400) K/uL Neut % (Auto) (36-66) % Lymph % (Auto) (24-44) % [place] % (Auto) (2-6) % Eos % (Auto) (2-4) % Baso % (Auto) (0-1) % PT (9.5-12.0) sec INR (0.80-1.20) APTT (27.0-36.0) sec Sodium (140-148) mmol/L Potassium (3.6-5.2) mmol/L Chloride (100-108) mmol/L Carbon Dioxide (21-32) mmol/L Anion Gap (5.0-14.0) mmol/L BUN (7-18) mg/dL Creatinine (0.8-1.3) mg/dL Est Cr Clr Drug Dosing mL/min Estimated GFR (MDRD) (>60) Glucose (74-106) mg/dL Lactic Acid 2.9 H (0.4-2.0) mmol/L Calcium (8.5-10.1) mg/dL Total Bilirubin (0.2-1.0) mg/dL AST (15-37) U/L ALT (12-78) U/L Alkaline Phosphatase (46-116) U/L Troponin I (0.000-0.056) ng/mL NT-Pro-B Natriuret Pep 237 (5-450) pg/mL Total Protein (6.4-8.2) g/dL Albumin (3.4-5.0) g/dL Globulin (2.3-3.5) g/dL Albumin/Globulin Ratio (1.2-2.2) Procalcitonin < 0.05 ng/mL Urine Color (YELLOW) Urine Appearance (CLEAR) Urine pH (5.0-8.0) Ur Specific Jeff (1.008-1.030) Urine Protein (NEGATIVE) mg/dL Urine Glucose (UA) (NEGATIVE) mg/dL Urine Ketones (NEGATIVE) mg/dL Urine Occult Blood (NEGATIVE) Urine Nitrite (NEGATIVE) Urine Bilirubin (NEGATIVE) Urine Urobilinogen (0.2-1.0) EU/dL Ur Leukocyte Esterase (NEGATIVE) Urine RBC (0-5) Urine WBC (0-5) Ur Epithelial Cells Amorphous Sediment Urine Bacteria Urine Mucus 05/29/19 05/29/19 05/30/19 Range/Units 15:04 18:15 04:39 WBC 7.3 (4.5-11.0) K/uL RBC 3.18 L (4.30-5.90) M/uL Hgb 9.6 L D (12.0-15.0) g/dL Hct 29.5 L (40.0-54.0) % MCV 93 (80-98) fL MCH 30 (27-31) pg MCHC 33 (32-36) % Plt Count 216 (150-400) K/uL Neut % (Auto) 73 H (36-66) % Lymph % (Auto) 16 L (24-44) % [place] % (Auto) 9 H (2-6) % Eos % (Auto) 2 (2-4) % Baso % (Auto) 0 (0-1) % PT (9.5-12.0) sec INR (0.80-1.20) APTT (27.0-36.0) sec Sodium (140-148) mmol/L Potassium (3.6-5.2) mmol/L Chloride (100-108) mmol/L Carbon Dioxide (21-32) mmol/L Anion Gap (5.0-14.0) mmol/L BUN (7-18) mg/dL Creatinine (0.8-1.3) mg/dL Est Cr Clr Drug Dosing mL/min Estimated GFR (MDRD) (>60) Glucose (74-106) mg/dL Lactic Acid (0.4-2.0) mmol/L Calcium (8.5-10.1) mg/dL Total Bilirubin (0.2-1.0) mg/dL AST (15-37) U/L ALT (12-78) U/L Alkaline Phosphatase (46-116) U/L Troponin I < 0.017 (0.000-0.056) ng/mL NT-Pro-B Natriuret Pep (5-450) pg/mL Total Protein (6.4-8.2) g/dL Albumin (3.4-5.0) g/dL Globulin (2.3-3.5) g/dL Albumin/Globulin Ratio (1.2-2.2) Procalcitonin ng/mL Urine Color Yellow (YELLOW) Urine Appearance Clear (CLEAR) Urine pH 5.5 (5.0-8.0) Ur Specific Jeff 1.020 (1.008-1.030) Urine Protein Negative (NEGATIVE) mg/dL Urine Glucose (UA) Normal (NEGATIVE) mg/dL Urine Ketones Negative (NEGATIVE) mg/dL Urine Occult Blood Moderate H (NEGATIVE) Urine Nitrite Negative (NEGATIVE) Urine Bilirubin Negative (NEGATIVE) Urine Urobilinogen 0.2 (0.2-1.0) EU/dL Ur Leukocyte Esterase Negative (NEGATIVE) Urine RBC 5-10 H (0-5) Urine WBC Not seen (0-5) Ur Epithelial Cells Not seen Amorphous Sediment Few Urine Bacteria Not seen Urine Mucus Not seen 05/30/19 05/30/19 Range/Units 04:39 04:39 WBC (4.5-11.0) K/uL RBC (4.30-5.90) M/uL Hgb (12.0-15.0) g/dL Hct (40.0-54.0) % MCV (80-98) fL MCH (27-31) pg MCHC (32-36) % Plt Count (150-400) K/uL Neut % (Auto) (36-66) % Lymph % (Auto) (24-44) % [place] % (Auto) (2-6) % Eos % (Auto) (2-4) % Baso % (Auto) (0-1) % PT 50.9 H (9.5-12.0) sec INR 5.17 H* (0.80-1.20) APTT (27.0-36.0) sec Sodium 136 L (140-148) mmol/L Potassium 4.1 (3.6-5.2) mmol/L Chloride 105 (100-108) mmol/L Carbon Dioxide 25 (21-32) mmol/L Anion Gap 10.1 (5.0-14.0) mmol/L BUN 31 H (7-18) mg/dL Creatinine 0.9 (0.8-1.3) mg/dL Est Cr Clr Drug Dosing 51.20 mL/min Estimated GFR (MDRD) > 60 (>60) Glucose 80 (74-106) mg/dL Lactic Acid (0.4-2.0) mmol/L Calcium 7.8 L (8.5-10.1) mg/dL Total Bilirubin (0.2-1.0) mg/dL AST (15-37) U/L ALT (12-78) U/L Alkaline Phosphatase (46-116) U/L Troponin I (0.000-0.056) ng/mL NT-Pro-B Natriuret Pep (5-450) pg/mL Total Protein (6.4-8.2) g/dL Albumin (3.4-5.0) g/dL Globulin (2.3-3.5) g/dL Albumin/Globulin Ratio (1.2-2.2) Procalcitonin ng/mL Urine Color (YELLOW) Urine Appearance (CLEAR) Urine pH (5.0-8.0) Ur Specific Jeff (1.008-1.030) Urine Protein (NEGATIVE) mg/dL Urine Glucose (UA) (NEGATIVE) mg/dL Urine Ketones (NEGATIVE) mg/dL Urine Occult Blood (NEGATIVE) Urine Nitrite (NEGATIVE) Urine Bilirubin (NEGATIVE) Urine Urobilinogen (0.2-1.0) EU/dL Ur Leukocyte Esterase (NEGATIVE) Urine RBC (0-5) Urine WBC (0-5) Ur Epithelial Cells Amorphous Sediment Urine Bacteria Urine Mucus Balaji Results Last 24 Hours: Microbiology 05/29/19 15:16 Urine Culture - Preliminary Urine, Catheterized NO GROWTH AFTER 1 DAY Med Orders - Current: Current Medications Acetaminophen (Tylenol) 650 mg PO Q4H PRN PRN Reason: Pain (Mild 1-3)/fever Aspirin (Halfprin) 81 mg PO DAILY [facility] Sodium Chloride (Normal Saline) 1,000 mls @ 125 mls/hr IV ASDIRECTED [facility] Last Admin: 05/30/19 08:53 Dose: 125 mls/hr Lactated Ringer's (Ringers, Lactated) 1,000 mls @ 125 mls/hr IV ASDIRECTED [facility] Losartan Potassium (Cozaar) 25 mg PO DAILY [facility] Ondansetron HCl (Zofran Odt) 4 mg PO Q6H PRN PRN Reason: Nausea able to take PO Pantoprazole Sodium (Protonix) 40 mg PO BIDAC [facility] Last Admin: 05/30/19 07:03 Dose: 40 mg Lutein 20mg Ptom 0 each PO DAILY [facility] Last Admin: 05/30/19 08:56 Dose: 1 each Sodium Chloride (Saline Flush) 10 ml FLUSH ASDIRECTED PRN PRN Reason: Keep Vein Open Last Admin: 05/29/19 13:49 Dose: 10 ml Venlafaxine HCl (Effexor Xr) 37.5 mg PO DAILY [facility] Discontinued Medications Aspirin (Aspirin) 81 mg PO DAILY [facility] Last Admin: 05/30/19 08:19 Dose: 81 mg Sodium Chloride (Normal Saline) 1,000 mls @ 999 mls/hr IV .BOLUS ONE Stop: 05/29/19 14:55 Last Admin: 05/29/19 14:26 Dose: 999 mls/hr Piperacillin Sod/Tazobactam (Sod 4.5 gm/ Sodium Chloride) 100 mls @ 100 mls/hr IV ONETIME ONE Stop: 05/29/19 15:36 Last Admin: 05/29/19 16:58 Dose: Not Given Piperacillin/Tazobactam/ (Dextrose 4.5 gm/ Premix) 100 mls @ 100 mls/hr IV ONETIME ONE Stop: 05/29/19 16:29 Last Admin: 05/29/19 15:47 Dose: 100 mls/hr Lidocaine HCl (Xylocaine 2% Jelly) 10 ml MUCMEM ONETIME ONE Stop: 05/29/19 14:47 Last Admin: 05/29/19 15:05 Dose: 10 ml Losartan Potassium (Cozaar) 25 mg PO DAILY [facility] Last Admin: 05/30/19 08:20 Dose: 25 mg Lutein (Lutein) 40 (MgPom) 40 mg PO DAILY [facility] Venlafaxine HCl (Effexor Xr) 37.5 mg PO DAILY [facility] Last Admin: 05/30/19 08:20 Dose: 37.5 mg - Exam Quality Assessment: No: Supplemental Oxygen General: Alert, Cooperative, No Acute Distress. No: Oriented Lungs: Clear to Auscultation, Normal Respiratory Effort Cardiovascular: Regular Rate, Regular Rhythm, Other (no ttp over stermum or ribs ) GI/Abdominal Exam: Soft, No Distention Extremities: No Pedal Edema. No: Increased Warmth Skin: Warm, Dry Psy/Mental Status: Alert, Normal Affect - Problem List Review Problem List Initiated/Reviewed/Updated: Yes - My Orders Last 24 Hours: My Active Orders 05/30/19 11:35 Phytonadione [AquaMephyton] 2.5 mg PO ONETIME ONE Convert IV to Saline Lock [OM.PC] Routine 05/31/19 05:00 BASIC METABOLIC PANEL,BMP [CHEM] Timed CBC W/O DIFF,HEMOGRAM [HEME] Timed (1) INR,PT,PROTHROMBIN TIME [COAG] Timed - Plan Plan:: ASSESSMENT AND PLAN Weakness - multifactorial problem with chronic deconditioning further complicated by dehydration and dementia. Seems to be doing a little better today. Hydration is better. Still very weak. Difficulty with cues because of his dementia -PT OT eval and treat Supratherapeutic INR - probably related to poor oral intake. Level slightly higher today without any warfarin given yesterday. -Hold Warfarin -Vitamin K 2.5 mg today -recheck INR in the morning Hypotension and tachycardia - probably related to poor oral intake and some degree of dehydration. Better overnight. -Encourage oral intake MAINTENANCE ISSUES -DVT prophylaxis; warfarin -GI prophylaxis; home medication of pantoprazole -Powell catheter; not indicated at this time -Nutrition; regular diet Admission justification - this gentleman does not meet inpatient criteria and therefore he is admitted for observation DISPOSITION - anticipate discharge to home after the hospital stay. Kenneth Aguirre M.D.
[2019-05-31 07:50] VITALS: PULSE 82
[2019-05-31] MEDS: Pantoprazole 40 MG Tab.CR PO SCH (08:08)
[2019-05-31] MEDS: LUTEIN 20 MG PO SCH (08:56)
[2019-05-31] MEDS ORDERED: Losartan 25 MG **PTOM PO SCH (09:00)
[2019-05-31] MEDS ORDERED: Aspirin 81 MG EC **PTOM PO SCH (09:00)
[2019-05-31] MEDS ORDERED: VENLAFAXINE 37.5 MG PO SCH (09:00)
[2019-05-31 10:39] VITALS: BP 129/60
--- NOTE | 2019-05-31 12:33 | PCM.DCSUM1 ---
Discharge Summary - Hospital Course Brief History: 83-year-old male with history of advanced Alzheimer's dementia who presented with generalized weakness and poor oral intake. He was admitted to observation status for hydration and strengthening. Diagnosis: Stroke: No - Discharge Data Discharge Date: 05/31/19 Discharge Disposition: Home, Self-Care 01 Condition: Fair - Discharge Diagnosis/Problem(s) (1) Weakness generalized SNOMED Code(s): 53693195 ICD Code: R53.1 - WEAKNESS Status: Acute Current Visit: Yes (2) Supratherapeutic INR SNOMED Code(s): 039036136 ICD Code: R79.1 - ABNORMAL COAGULATION PROFILE Status: Acute Priority: High Current Visit: Yes (3) Alzheimer's dementia without behavioral disturbance SNOMED Code(s): 77066463 ICD Code: G30.9 - ALZHEIMER'S DISEASE, UNSPECIFIED; F02.80 - DEMENTIA IN OTH DISEASES CLASSD ELSWHR W/O BEHAVRL DISTURB Status: Chronic Current Visit: Yes Qualifiers: Alzheimer's disease onset: late-onset Qualified Code(s): G30.1 - Alzheimer' s disease with late onset; F02.80 - Dementia in other diseases classified elsewhere without behavioral disturbance - Patient Summary/Data Consults: Consultations 05/29/19 15:57 OT Evaluation and Treatment [CONS] Routine Please Evaluate and Treat. OT Reason for Consult: Strengthening This query below is only for informational purposes and is not editable. Admission Diagnosis/Problem: Weakness PT Evaluation and Treatment [CONS] Routine Please Evaluate and Treat. PT Reason for Consult: Strengthening This query below is only for informational purposes and is not editable. Admission Diagnosis/Problem: Weakness Hospital Course: Alex presented to the emergency room with generalized weakness and poor oral intake. Workup in the emergency room revealed mild dehydration with a mild decrease in kidney function from baseline. INR was slightly supratherapeutic. He was mildly tachycardic and borderline hypotensive but there is no evidence for infection. He was thought to be too weak for outpatient management so he was admitted to observation. He received IV fluids overnight and through most of the day following admission. His warfarin was held for the first day and remained elevated and was even slightly higher so he did get a very small dose of oral vitamin K. He remains weak but seems to be at about his baseline at this time. No evidence for infection developed during the course of the hospital stay. His INR at the time of discharge is now down to 1.8. Kidney function is back to baseline. Patient is able to get around with standby assist and a walker which I think is about as good as he gets. He has recently completed home health care physical therapy. His and family are looking into potential care options for him since he is becoming very difficult to provide adequate care for at home. I did recommend that he start taking melatonin at bedtime to see if we can get his sleep and wake cycle regulated a little bit more efficiently. There have been no behavior issues during the hospital stay. He'll be discharged to home with his and family at this time. - Patient Instructions Diet: Regular Diet as Tolerated Activity: As Tolerated Notify Provider of: Fever, Increased Pain Other/Special Instructions: 1. Consider melatonin 10 mg at bedtime to help with sleep. This supplement is available in gummy form. - Discharge Plan *PRESCRIPTION DRUG MONITORING PROGRAM REVIEWED*: Not Applicable *COPY OF PRESCRIPTION DRUG MONITORING REPORT IN PATIENT FAIZA: Not Applicable Home Medications: Home Meds Aspirin 81 mg PO DAILY 06/02/17 [History] Cholecalciferol (Vitamin D3) [Vitamin D3] 1,000 unit PO DAILY 06/02/17 [History] Losartan [Cozaar] 25 mg PO DAILY 06/02/17 [History] Omeprazole 40 mg PO BID 06/02/17 [History] Warfarin [Coumadin] 6 mg PO DAILY 06/02/17 [History] Lutein 40 mg PO DAILY 06/04/17 [History] Amoxicillin 500 mg PO ASDIRECTED 04/20/19 [History] Venlafaxine HCl [Venlafaxine ER] 37.5 mg PO DAILY 04/20/19 [History] Multivitamin [Gummi Bear Multivitamin] 2 each PO DAILY 05/18/19 [History] Oxygen Therapy Mode: Room Air Patient Handouts: Alzheimer Disease Caregiver Guide Referrals: Pedro Trinidad MD [Primary Care Provider] - (f/u as needed ) - Discharge Summary/Plan Comment DC Time >30 min.: No - Patient Data Vitals - Most Recent: Last Vital Signs Temp 35.8 C 05/31/19 10:36 Pulse 82 05/31/19 10:36 Resp 16 05/31/19 10:36 BP 129/60 05/31/19 10:36 Pulse Ox 99 05/31/19 10:36 Weight - Most Recent: 57.198 kg I&O - Last 24 hours: Intake & Output 05/30/19 05/31/19 05/31/19 22:59 06:59 14:59 Intake Total 150 270 Balance 150 270 Lab Results - Last 24 hrs: Laboratory Results - last 24 hr 05/31/19 05/31/19 05/31/19 Range/Units 05:30 05:30 05:30 WBC 6.1 (4.5-11.0) K/uL RBC 3.09 L (4.30-5.90) M/uL Hgb 9.2 L (12.0-15.0) g/dL Hct 28.6 L (40.0-54.0) % MCV 93 (80-98) fL MCH 30 (27-31) pg MCHC 32 (32-36) % Plt Count 217 (150-400) K/uL PT 19.7 H (9.5-12.0) sec INR 1.89 H D (0.80-1.20) Sodium 136 L (140-148) mmol/L Potassium 4.0 (3.6-5.2) mmol/L Chloride 103 (100-108) mmol/L Carbon Dioxide 28 (21-32) mmol/L Anion Gap 9.0 (5.0-14.0) mmol/L BUN 19 H (7-18) mg/dL Creatinine 0.8 (0.8-1.3) mg/dL Est Cr Clr Drug Dosing 57.60 mL/min Estimated GFR (MDRD) > 60 (>60) Glucose 87 (74-106) mg/dL Calcium 8.3 L (8.5-10.1) mg/dL HARISH Results - Last 24 hrs: Microbiology 05/29/19 15:16 Urine Culture - Final Urine, Catheterized NO GROWTH AFTER 2 DAYS 05/29/19 14:10 Aerobic Blood Culture - Preliminary Blood - Arm, Left NO GROWTH AFTER 1 DAY Anaerobic Blood Culture - Preliminary NO GROWTH AFTER 1 DAY 05/29/19 14:20 Aerobic Blood Culture - Preliminary Blood - Arm, Left NO GROWTH AFTER 1 DAY Anaerobic Blood Culture - Preliminary NO GROWTH AFTER 1 DAY Med Orders - Current: Current Medications Acetaminophen (Tylenol) 650 mg PO Q4H PRN PRN Reason: Pain (Mild 1-3)/fever Aspirin (Halfprin) 81 mg PO DAILY [facility] Last Admin: 05/31/19 08:56 Dose: 81 mg Losartan Potassium (Cozaar) 25 mg PO DAILY [facility] Last Admin: 05/31/19 08:58 Dose: 25 mg Ondansetron HCl (Zofran Odt) 4 mg PO Q6H PRN PRN Reason: Nausea able to take PO Pantoprazole Sodium (Protonix) 40 mg PO BIDAC [facility] Last Admin: 05/31/19 08:08 Dose: 40 mg Lutein 20mg Ptom 0 each PO DAILY [facility] Last Admin: 05/31/19 08:56 Dose: 1 each Warfarin 6mg Ptom* (*) 0 each PO DAILY@1300 [facility] Sodium Chloride (Saline Flush) 10 ml FLUSH ASDIRECTED PRN PRN Reason: Keep Vein Open Last Admin: 05/29/19 13:49 Dose: 10 ml Venlafaxine HCl (Effexor Xr) 37.5 mg PO DAILY [facility] Last Admin: 05/31/19 08:57 Dose: 37.5 mg Discontinued Medications Aspirin (Aspirin) 81 mg PO DAILY [facility] Last Admin: 05/30/19 08:19 Dose: 81 mg Sodium Chloride (Normal Saline) 1,000 mls @ 125 mls/hr IV ASDIRECTED [facility] Last Admin: 05/30/19 08:53 Dose: 125 mls/hr Sodium Chloride (Normal Saline) 1,000 mls @ 999 mls/hr IV .BOLUS ONE Stop: 05/29/19 14:55 Last Admin: 05/29/19 14:26 Dose: 999 mls/hr Piperacillin Sod/Tazobactam (Sod 4.5 gm/ Sodium Chloride) 100 mls @ 100 mls/hr IV ONETIME ONE Stop: 05/29/19 15:36 Last Admin: 05/29/19 16:58 Dose: Not Given Piperacillin/Tazobactam/ (Dextrose 4.5 gm/ Premix) 100 mls @ 100 mls/hr IV ONETIME ONE Stop: 05/29/19 16:29 Last Admin: 05/29/19 15:47 Dose: 100 mls/hr Lactated Ringer's (Ringers, Lactated) 1,000 mls @ 125 mls/hr IV ASDIRECTED [facility] Lidocaine HCl (Xylocaine 2% Jelly) 10 ml MUCMEM ONETIME ONE Stop: 05/29/19 14:47 Last Admin: 05/29/19 15:05 Dose: 10 ml Losartan Potassium (Cozaar) 25 mg PO DAILY [facility] Last Admin: 05/30/19 08:20 Dose: 25 mg Lutein (Lutein) 40 (MgPom) 40 mg PO DAILY [facility] Phytonadione (Aquamephyton) 2.5 mg PO ONETIME ONE Stop: 05/30/19 11:36 Last Admin: 05/30/19 13:29 Dose: 2.5 mg Venlafaxine HCl (Effexor Xr) 37.5 mg PO DAILY [facility] Last Admin: 05/30/19 08:20 Dose: 37.5 mg - Exam Quality Assessment: Denies: Supplemental Oxygen General: Reports: Alert, Cooperative, No Acute Distress. Denies: Oriented Lungs: Reports: Normal Respiratory Effort Cardiovascular: Reports: Regular Rate, Regular Rhythm GI/Abdominal Exam: Soft, No Distention Extremities: No Pedal Edema Psy/Mental Status: Reports: Alert. Denies: Agitated
[2019-05-31] MEDS ORDERED: WARFARIN 6 MG PO SCH (13:00)
[2019-05-31] MEDS ORDERED: Warfarin 5 MG Tab PO SCH (13:00)
== END 2019-05-31 14:25 | disposition home or self-care (01) ==
LOC: JP.ED 13:31 → JP.MS 15:38
PROVIDERS: ADMIT Family Medicine; ATTEND Internal Medicine
DX: R53.1 Weakness (principal); I95.89 Other hypotension; E86.1 Hypovolemia; E86.0 Dehydration; R79.1 Abnormal coagulation profile; R00.0 Tachycardia, unspecified; N28.89 Other specified disorders of kidney and ureter; I10 Essential (primary) hypertension; G30.1 Alzheimer's disease with late onset; F02.80 Dementia in other diseases classified elsewhere, unspecified severity, without behavioral disturbance, psychotic disturbance, mood disturbance, and anxiety; Z86.73 Personal history of transient ischemic attack (TIA), and cerebral infarction without residual deficits; Z79.82 Long term (current) use of aspirin; Z79.01 Long term (current) use of anticoagulants; Z79.899 Other long term (current) drug therapy
CPT/HCPCS: 36415; 71046; 80048; 80053; 81001; 83605; 83880; 84145; 84484; 85025; 85027; 85610; 85730; 87040; 87086; 93005; 96361; 96365; 97116; 97162; 99285; A9270; G0378; J2543; J7030; 93010